=== PATIENT | male | born 1955 | race Caucasian/White ===

== ENCOUNTER 2024-11-03 20:21 | Inpatient (IN) | payer MEDICARE, MEDICAID, SELFPAY ==
[2024-11-03 20:26] VITALS: PULSE 57; RESP 20; O2SAT 95
[2024-11-03 20:29] VITALS: BMI 24.3
[2024-11-03 20:30] VITALS: BP 65/39; PULSE 63; RESP 17; TEMP 37; O2SAT 90
--- NOTE | 2024-11-03 20:35 | EKG_ITS ---
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
--- NOTE | 2024-11-03 20:50 | PD.EDALCOH ---
ED Alcohol RME/HPI General Chief Complaint: Alcohol Stated Complaint: ALTERED Time Seen by Provider: 11/03/24 20:47 Arrival date/time: 11/03/24 20:21 Mode of arrival: EMS RME / HPI RME / HPI narrative: DR. CORDERO MAIN ED EVALUATION: 68 y/o male with Hx of Alcohol Abuse JONI from [facility] presents wit stated complaint of alcohol intoxication. Patient was also found to be hypotensive upon arrival. Patient is not a reliable historian. History was obtained from EMS and nurses. Denies any pain. No other concerns or complaints expressed at this time. MD complaint: alcohol intoxication Last drink: Just Prior to Arrival Chronic alcohol use: Yes Previous visits for alcohol intoxication: Yes Related Data Home Medications ?Medication ?Instructions ?Recorded ?Confirmed aripiprazole 5 mg tablet (Abilify) 5 mg PO HS 01/09/23 01/09/23 aspirin 81 mg tablet,delayed 81 mg PO QDAY 01/09/23 01/09/23 release atorvastatin 80 mg tablet 80 mg PO HS 01/09/23 01/09/23 buspirone 7.5 mg tablet 7.5 mg PO QDAY 01/09/23 01/09/23 divalproex 500 mg tablet,extended 500 mg PO HS 01/09/23 01/09/23 release 24 hr ferrous sulfate 325 mg (65 mg 325 mg PO QDAY 01/09/23 01/09/23 iron) tablet lisinopril 10 mg tablet 10 mg QDAY 01/09/23 01/09/23 Allergies Allergy/AdvReac Type Severity Reaction Status Date / Time No Known Allergies Allergy Verified 11/03/24 20:23 Review of Systems Review of Systems ROS Unobtainable: unobtainable due to mental status Past Medical History Past Medical History NEUROLOGIC: Positive Neurological Disorders, Transient Ischemic Attacks (TIA) and Seizures CARDIAC: Positive Cardiac Disorders, Myocardial Infarction, Heart Murmur, Coronary Artery Disease, Peripheral Vascular Disease, Hypercholesterolemia, Edema and Hypertension RESPIRATORY: Positive Asthma GASTROINTESTINAL: Positive Gastrointestinal Disorders, Cirrhosis, Gastrointestinal Bleed, Esophageal Varices, Obstructive Bowel and Obesity GENITOURINARY: Positive Genitourinary Disorders MUSCULOSKELETAL: Positive Musculoskeletal Disorders, Arthritis and Carpal Tunnel Syndrome ENDOCRINE: Positive Diabetes Mellitus Type 2 HEMATOLOGIC: Positive Blood Disorders and Anemia PSYCHO/SOCIAL: Positive Psychiatric Problems, Bipolar Disorder, Depression, Anxiety, Attention Deficit Disorder, Attention Deficit Hyperactivity Disorder and Post Traumatic Stress Disorder OTHER HISTORY: Positive Hospitalization, Blood Transfusions and MRSA Family History FAMILY HISTORY: Positive Family Surgery Surgical History SURGICAL: Positive Cardiac Surgery, Coronary Stent, Cardiac Catheterization, Abdominal Surgery, Gastric Bypass Surgery, Bowel Surgery and Nephrectomy Social History SMOKING STATUS: Current some day smoker ALCOHOL: Current ALCOHOL FREQUENCY: 3 or More Drinks per Day ALCOHOL LAST INTAKE: Just Prior to Arrival ED Exam Narrative Physical exam: Generally the patient is somnolent arouses to loud verbal stimuli and follows commands heart is regular rate and rhythm lungs station equal bilaterally abdomen soft bowel sounds present all send nontender neurologic exam patient has no focal motor deficits his sensorium gradually improved throughout the ER stay. Skin is warm pale and dry genital exam is for a normal circumcised male. Course Course Course Narrative: CXR is ordered for determining the etiology of shortness of breath. Quality Measures none Orders Category Date Time Status Bedside Blood Glucose NOW Care 11/03/24 20:39 Active EKG (ED ONLY) *Do not use* NOW Care 11/03/24 20:35 Completed Matthews [Urinary Catheter] QS Care 11/03/24 20:[address] head/brain wo con Stat Exams 11/03/24 20:56 Completed EKG (ED Only) Stat Exams 11/03/24 20:35 Draft XR chest 1V portable Stat Exams 11/03/24 20:56 Completed Alcohol, Blood Medical Stat Lab 11/03/24 21:44 Completed Blood Culture (Lab) Stat Lab 11/03/24 21:49 Received CBC Stat Lab 11/03/24 21:44 Completed CMP [Comprehensive Metabolic Panel] Stat Lab 11/03/24 21:44 Completed Drug Screen,Urine Stat Lab 11/03/24 21:00 Completed Lactic Acid [Lactate (Lactic Acid)] Stat Lab 11/03/24 21:44 Results TSH [Thyroid Stimulating Hormone] Stat Lab 11/04/24 00:10 Ordered Troponin I Stat Lab 11/03/24 21:44 Completed UA [Urinalysis] Stat Lab 11/03/24 21:00 Completed Ringers Lactated 1000 ml [Lactated Ringers] 1,000 ml Med 11/03/24 21:14 Discontinued IV 999 mls/hr Ringers Lactated 1000 ml [Lactated Ringers] 1,000 ml Med 11/03/24 21:15 Discontinued IV 999 mls/hr Sodium Chloride 0.9% 1000 ml [Ns] 1,000 ml Med 11/03/24 22:34 Discontinued IV 999 mls/hr Sodium Chloride 0.9% 1000 ml [Ns] 1,000 ml Med 11/04/24 00:03 Active IV 999 mls/hr Sodium Chloride 0.9% 1000 ml [Ns] 2,000 ml Med 11/03/24 21:16 Discontinued IV 999 mls/hr Vital Signs Vital signs: Vital Signs Temperature 98.6 F 11/03/24 20:30 Pulse Rate 63 11/03/24 20:30 Respiratory Rate 17 11/03/24 20:30 Blood Pressure 65/39 L 11/03/24 20:30 Pulse Oximetry (%) 90 L 11/03/24 20:30 Oxygen Delivery Method Room Air 11/03/24 20:30 Critical Care Time Critical Care Time Critical Care Time: Yes Total Critical Care Time (min.): 35 Attestation: Excluding other billable procedures Discharge Plan Plan Patient Disposition: Admit Acute Care w/in Hospital Prescriptions/Referrals Prescriptions/Med Rec: No Action atorvastatin 80 mg tablet 80 mg PO HS Patient Comments: TAKE 1 TABLET BY MOUTH DAILY AT BEDTIME FOR 7 DOSES aspirin 81 mg tablet,delayed release (DR/EC) 81 mg PO QDAY Patient Comments: TAKE 1 TABLET (81 MG TOTAL) BY MOUTH 1 (ONE) TIME EACH DAY FOR 26 DOSES. ferrous sulfate 325 mg (65 mg iron) tablet 325 mg PO QDAY Patient Comments: TAKE 1 TABLET BY MOUTH EVERY DAY lisinopril 10 mg tablet 10 mg QDAY Patient Comments: TAKE 1 TABLET BY MOUTH 1 TIME EACH DAY. divalproex 500 mg tablet extended release 24 hr 500 mg PO HS Patient Comments: TAKE 1 TABLET BY MOUTH EVERYDAY AT BEDTIME buspirone 7.5 mg Tablet 7.5 mg PO QDAY aripiprazole [Abilify] 5 mg Tablet 5 mg PO HS Referrals: No Primary/Family,Physician [Primary Care Provider] - In 1 week Problem List Clinical Impression: Hypotension, Alcohol abuse, Dehydration Patient/Caregiver Discharge Instructions Print Language: Mohawk Stand Alone Forms: Pretty Award Info., Patient Portal Info Letter Alcohol MDM Narrative MDM Narrative: Scribe Attestation: Sylvia Jeffery am scribing for and in the presence of Dr. Cordero. Provider Notation: Although this document has been carefully reviewed, there may still be some phonetic and other typographical errors.? These errors are purely grammatical due to imperfections in the software program and should not be construed in any way to? compromise the substance of the patient's medical care during this visit. Patient arrived hypotensive with a systolic blood pressure in the 70s. Patient was hydrated with 3 L of IV normal saline with a blood pressure increase to 94/58. He will receive 1/4 L of IV fluid. He has no signs of infection. Lactic acid level was 2.1. Blood alcohol level is 204. Head CT is negative. He is now alert and oriented x 4. Albumin was low at 3.0. I spoke with the hospitalist and the patient will be admitted in the hospital for further treatment and evaluation with his volume depletion and alcohol abuse and hypotension improved. Patient data External records reviewed:: [facility] [place] previous records (Reviewed prior ED records from 01/30/23. Patient was seen for Alcohol abuse.) and EMS form Clinical information provided by:: EMS Social determinants that could affect healthcare access:: alcohol use Patient has the following chronic illnesses:: Alcohol abuse How is presenting disease/condition affected by chronic disease/condition?: exacerbated by Evaluation data The following diagnostics were reviewed and interpreted by me:: lab results, radiology exam(s) and EKG tracing(s) Lab and/or radiology exams considered but not ordered:: None Interpretation Summary: RADIOLOGY Head/Brain CT: Findings: No significant ventricular enlargement. Intra-axial or extra-axial hemorrhage density is not seen. No mass effect or midline shift Basal cisterns are not remarkable. Fourth ventricle is midline. Cranial vault intact. Impression: Negative for acute hemorrhage, mass effect or midline shift Chest X-Ray: FINDINGS: Normal heart size The lungs are clear. The osseous structures are intact IMPRESSION: No active disease Medications / Prescriptions Medications or Prescriptions considered but not ordered:: None Medication administrations:: Medication Administration History Sodium Chloride (Ns) 1,000 mls @ 999 mls/hr IV .Q1H1M ONE Stop: 11/04/24 01:03 Last Admin: 11/04/24 00:12 Dose: 999 mls/hr Documented By: RACHEL Discontinued Medications Lactated Ringer's (Lactated Ringers) 1,000 mls @ 999 mls/hr IV .Q1H1M ONE Stop: 11/03/24 22:14 Last Admin: 11/03/24 21:18 Dose: Not Given Documented By: RACHEL Non-Admin Reason: Cancelled by Provider Lactated Ringer's (Lactated Ringers) 1,000 mls @ 999 mls/hr IV .Q1H1M ONE Stop: 11/03/24 22:15 Last Admin: 11/03/24 21:18 Dose: Not Given Documented By: RACHEL Non-Admin Reason: Cancelled by Provider Sodium Chloride (Ns) 2,000 mls @ 999 mls/hr IV .Q2H1M ONE Stop: 11/03/24 23:16 Last Infusion: 11/03/24 23:25 Dose: Infused Documented By: Admin: 11/03/24 21:17 Dose: 999 mls/hr Documented By: RACHEL Sodium Chloride (Ns) 1,000 mls @ 999 mls/hr IV .Q1H1M ONE Stop: 11/03/24 23:34 Last Infusion: 11/04/24 00:04 Dose: Infused Documented By: Admin: 11/03/24 22:46 Dose: 999 mls/hr Documented By: RACHEL See above Consultations Consultation(s) initiated? (list below): Yes Consultation #1 (Physician, Specialty, Details): Hospitalist made aware of the patient?s HPI, PMHx, lab and/or radiology results. Treatment plan was discussed. Will admit for further evaluation and management. Accepts patient for admission. Time: 00:11 Diagnosis Differential diagnosis alcohol: alcohol withdrawal delirium, hypomagnesemia, alcohol intoxication, alcohol ketoacidosis, alcohol withdrawal syndrome and alcohol withdrawal seizure Most likely diagnosis given after review of the tests above:: None Admission Indicated Admission indicated?: indicated Admission Request Was there a request for admission?: Yes Admission Attestation Admission request attestation: Discussed case with [] from Hospitalist service regarding admission. Discussed patients ED course, exam findings, labs, and radiology results. The Hospitalist [agrees,declines] to accept the patient for admission. Disposition Plan Disposition Plan: Admit
--- NOTE | 2024-11-03 20:56 | XR_ITS ---
Examination: AP chest single view Technique one AP portable semiupright chest single view Date and time: November 03, 2024 2138 hours Comparison January 09, 2023 INDICATIONS: Chest pain today FINDINGS: Normal heart size The lungs are clear. The osseous structures are intact IMPRESSION: No active disease
--- NOTE | 2024-11-03 20:56 | XR_ITS ---
Examination: CT brain head without contrast. 2-D sagittal coronal reconstructions Date and time of exam:November 03, 2024, 2126 hours, comparison January 16, 2023 INDICATIONS: Altered mental status today CTDI: vol (mGy):55.3 DLP: (mGycm):1137 Technique: Multiple CT axial sections of the brain have been obtained, 5 mm slice thickness. Contrast has not been administered. 2-D sagittal, coronal reconstructions have been obtained Low dose protocols were performed. One or more of the following dose reduction techniques were used; automated exposure control, adjustment of the mA and/or KV according to patient size, use of iterative reconstruction technique. Findings: No significant ventricular enlargement. Intra-axial or extra-axial hemorrhage density is not seen. No mass effect or midline shift Basal cisterns are not remarkable. Fourth ventricle is midline. Cranial vault intact. Impression: Negative for acute hemorrhage, mass effect or midline shift
[2024-11-03] MEDS: SODIUM CHLORIDE 0.9% 1000 ML 2,000 ML 999 ML IV (21:17)
[2024-11-03 21:18] LABS: Collection Type, Urine Catheter
[2024-11-03 21:23] LABS: Bilirubin,Urine Negative (Negative); Blood,Urine Negative (Negative); Clarity,Urine Clear (Clear/Hazy); Color,Urine Lt-Yellow (Lt Yel-Yel); Glucose, Urine Negative (Negative); Ketones,Urine Negative (Negative); Leukocyte Esterase,Urine Negative (Negative); Nitrite,Urine Negative (Negative); PH,Urine 6.5 (5.0-7.0); Protein,Urine Trace (Neg - Trace); RBC,Urine 1 /hpf (0-3); Specific Gravity,Urine 1.021 (1.001-1.035); Squamous Epithelial Cell,Urine 2 /hpf (0-5); Urobilinogen,Urine Negative mg/dL (0.0-1.0); WBC,Urine 2 /hpf (0-5)
[2024-11-03 21:31] LABS: Amphetamine/Methamp Scrn,U Negative (Negative); Barbiturate Screen,Urine Negative (Negative); Benzodiazepines Screen,Urine Negative (Negative); Benzoylecgonine Screen, Ur Negative (Negative); Fentanyl Screen,Urine Negative (Negative); Opiate Screen,Urine Negative (Negative); THC Screen,Urine Negative (Negative)
[2024-11-03 21:53] VITALS: BP 74/53; PULSE 60; RESP 13; TEMP 36.8; O2SAT 99
[2024-11-03 21:53] LABS: Lactate (Lactic Acid) 2.1 mMol/L (0.4-2.0)
[2024-11-03 21:56] LABS: Basophils # (Auto) 0.1 Thou/mm3 (0.0-0.2); Basophils % (Auto) 1 % (0-2.5); Eosinophils # (Auto) 0.7 Thou/mm3 (0.0-0.5); Eosinophils % (Auto) 9 % (0-10); Hematocrit 32.7 % (41.0-53.0); Hemoglobin 10.9 g/dL (13.5-16.0); Immature Granulocytes Auto 0.01 Thou/mm3 (0.00-0.00); Lymphocytes # (Auto) 1.5 Thou/mm3 (1.0-4.8); Lymphocytes % (Auto) 20 % (10-50); Mean Corpuscular HGB Conc 33.3 g/dl (31.0-37.0); Mean Corpuscular Hemoglobin 32.9 pg (25.0-35.0); Mean Corpuscular Volume 99 fL (80-100); Monocytes # (Auto) 0.5 Thou/mm3 (0.0-0.8); Monocytes % (Auto) 7 % (0-12); Neutrophils # (Auto) 4.6 Thou/mm3 (1.8-7.7); Neutrophils % (Auto) 63 % (37-80); Nucleated Red Blood Cell # 0.00 Thou/mm3 (0.00-0.00); Nucleated Red Blood Cell % 0 /100 WBC (0); Platelet Count 148 Thou/mm3 (140-440); RDW Standard Deviation 46.9 fL (35.1-43.9); Red Blood Count 3.31 Miln/mm3 (4.50-5.90); White Blood Count 7.3 Thou/mm3 (3.8-10.6)
[2024-11-03 22:13] LABS: Alanine Aminotransferase 13 U/L (10-49); Albumin, Serum 3.0 gm/dL (3.4-4.8); Albumin/Globulin Ratio 1.7 (1.2-2.2); Alcohol, Blood Medical 204.2 mg/dL (0-10.0); Alkaline Phosphatase 105 U/L (46-116); Anion Gap 10 (7-16); Aspartate Amino Transferase 16 U/L (0-34); BUN/Creatinine Ratio 15 Ratio (12-20); Bilirubin,Total 0.3 mg/dL (0.3-1.2); Blood Urea Nitrogen 21 mg/dL (9-23); Calcium 7.3 mg/dL (8.3-10.6); Calcium (Corrected) 8.1 mg/dL (8.5-10.1); Carbon Dioxide 19.7 mMol/L (20.0-31.0); Chloride 111 mMol/L (98-107); Creatinine (Component) 1.4 mg/dL (0.6-1.3); Estimated Creatinine Clearance 63.7 mL/min (>60); Globulin 1.8 gm/dL (2.3-3.5); Glucose 233 mg/dL (74-106); Osmolality,Calculated 291 (275-295); Potassium 4.0 mMol/L (3.4-5.1); Sodium 141 mMol/L (136-145); Total Protein 4.8 gm/dL (5.7-8.2); Troponin I < 0.020 ng/mL (0.0-0.045); eGFR 55 See Note
[2024-11-03] MEDS: SODIUM CHLORIDE 0.9% 1000 ML 1,000 ML 999 ML IV (22:46)
[2024-11-03 22:47] VITALS: BP 81/58; PULSE 54; RESP 15; TEMP 36.7; O2SAT 95
[2024-11-03 23:44] VITALS: BP 78/55; PULSE 55; RESP 18; O2SAT 94
[2024-11-04] VITALS (10 sets, daily range): BP systolic 92–168; BP diastolic 64–103; PULSE 55–108; RESP 13–19; TEMP 36.1–37.4; O2SAT 94–96
[2024-11-04] MEDS: SODIUM CHLORIDE 0.9% 1000 ML 1,000 ML 999 ML IV (00:12)
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
[2024-11-04 00:51] LABS: Reflex Lactate? Y
[2024-11-04 01:00] LABS: Creatine Kinase 49 U/L (34-171); Thyroid Stimulating Hormone 2.24 uIU/mL (0.55-4.78)
[2024-11-04 01:06] LABS: Lactic Acid, 3 HR 1.4 mMol/L (0.4-2.0)
[2024-11-04] MEDS: DIVALPROEX SOD EC 125 MG TABEC 500 MG PO ×2 (01:43→20:11)
[2024-11-04 03:03] LABS: Ammonia 27 uMol/L (11-32)
[2024-11-04 04:58] LABS: Basophils # (Auto) 0.1 Thou/mm3 (0.0-0.2); Basophils % (Auto) 1 % (0-2.5); Eosinophils # (Auto) 0.5 Thou/mm3 (0.0-0.5); Eosinophils % (Auto) 8 % (0-10); Hematocrit 34.5 % (41.0-53.0); Hemoglobin 11.8 g/dL (13.5-16.0); Immature Granulocytes Auto 0.01 Thou/mm3 (0.00-0.00); Immature Reticulocyte Fraction 9.4 % (2.3-13.4); Lymphocytes # (Auto) 1.9 Thou/mm3 (1.0-4.8); Lymphocytes % (Auto) 27 % (10-50); Mean Corpuscular HGB Conc 34.2 g/dl (31.0-37.0); Mean Corpuscular Hemoglobin 33.8 pg (25.0-35.0); Mean Corpuscular Volume 99 fL (80-100); Monocytes # (Auto) 0.7 Thou/mm3 (0.0-0.8); Monocytes % (Auto) 10 % (0-12); Neutrophils # (Auto) 3.8 Thou/mm3 (1.8-7.7); Neutrophils % (Auto) 55 % (37-80); Nucleated Red Blood Cell # 0.00 Thou/mm3 (0.00-0.00); Nucleated Red Blood Cell % 0 /100 WBC (0); Platelet Count 120 Thou/mm3 (140-440); RDW Standard Deviation 48.5 fL (35.1-43.9); Red Blood Count 3.49 Miln/mm3 (4.50-5.90); Reticulocyte % (Auto) 1.7 % (0.5-1.5); Reticulocyte Absolute Auto 59.7 Biln/L (25.0-75.0); Reticulocyte Hgb Content 37.2 pg (28.0-35.0); White Blood Count 7.0 Thou/mm3 (3.8-10.6)
[2024-11-04 05:22] LABS: Glucose Estimated Average 103 mg/dL (80-131); Hemoglobin A1C 5.2 % Hgb (4.8-6.0)
[2024-11-04 05:25] LABS: Alanine Aminotransferase 14 U/L (10-49); Albumin, Serum 3.1 gm/dL (3.4-4.8); Albumin/Globulin Ratio 1.6 (1.2-2.2); Alkaline Phosphatase 110 U/L (46-116); Anion Gap 11 (7-16); Aspartate Amino Transferase 17 U/L (0-34); BUN/Creatinine Ratio 22 Ratio (12-20); Bilirubin,Total 0.3 mg/dL (0.3-1.2); Blood Urea Nitrogen 22 mg/dL (9-23); Calcium 7.7 mg/dL (8.3-10.6); Calcium (Corrected) 8.4 mg/dL (8.5-10.1); Carbon Dioxide 19.5 mMol/L (20.0-31.0); Cardiac Risk Estimate 2.2 RATIO (4.0-6.7); Chloride 114 mMol/L (98-107); Cholesterol 116 mg/dL (132-200); Creatinine (Component) 1.0 mg/dL (0.6-1.3); Estimated Creatinine Clearance 89.2 mL/min (>60); Ferritin 160 ng/mL (10.5-307.3); Globulin 1.9 gm/dL (2.3-3.5); Glucose 114 mg/dL (74-106); HDL Cholesterol 52 mg/dL (40-60); Iron 40 mcg/dL (65-175); LDL Cholesterol,Calculated 51 mg/dL (0-130); Magnesium 1.3 mg/dL (1.6-2.6); Osmolality,Calculated 291 (275-295); Percent Iron Saturation 15 % (20-55); Phosphorous 3.5 mg/dL (2.4-5.1); Potassium 4.2 mMol/L (3.4-5.1); Sodium 144 mMol/L (136-145); Total Iron Binding Capacity 254 mcg/dL (250-425); Total Protein 5.0 gm/dL (5.7-8.2); Triglycerides 66 mg/dL (30-150); Unsaturated Iron Binding 214 (225-295); eGFR > 60 See Note
[2024-11-04] MEDS: THIAMINE 100 MG TABLET PO (08:48)
[2024-11-04] MEDS: FOLIC ACID 1 MG TABLET PO (08:48)
[2024-11-04] MEDS: Magnesium Sulfate 4 GM Ivpb 4 GM/50 ML BAG IV (08:49)
[2024-11-04] MEDS: HEPARIN SOD INJ 5000 UNIT/ML VIAL SC ×2 (08:49→20:11)
[2024-11-04] MEDS: FINASTERIDE 5 MG TABLET PO (10:07)
--- NOTE | 2024-11-04 11:45 | ESPR_ITS ---
<Statement entered by Agnes Corona MD - 11/04/24 13:38> I have reviewed the note and agree with the resident's assessment & plan with exceptions as below. I have personally reviewed labs, imaging, home meds/prior records, examined the patient, formulated and discussed management plan with the IM team. Pt examined at bedside today. Pt reports that he does not know how he got to the hospital. He is AAOx3, however believes that he was drinking at his girlfriend's house (which is what is documented different in [facility] where it says he was at a casino). He reports that he used to be sober for 4 years, however, he relapsed recently due to the presence of new stressors in his life. He does report being admitted into the hospital in the past for alcohol withdrawal, and took Ativan for it, however, he denies ever being in an AA program as well. Will order follow up UDS, pt's ASHLEY has resolved (1.4 -> 1.0). Pt's ASHLEY etiology likely related to Pre-renal, however due to resolvement, will hold on further workup of ASHLEY. Will continue with CIWA protocol, last CIWA 9. Pt will also get social work specialist referral in the meantime. Continue with CIWA protocol, repeat hematology and chemistry in AM. #Alcohol Withdrawal 2/2 #Alcohol use disorder #ASHLEY, resolved Agnes Corona, PGY-2 Internal Medicine Documentation for date of: 11/04/24 Subjective Subjective Interval history: Patient seen at bedside. No acute overnight events. While in the room patient mentions that he had more than 2 drinks last night of hard liquor. For the past 7 days he has been having 10 drinks per day of hard liquor. Before that he was having half a pint per day for several months. Patient has been complaining of stomach acidity and ongoing dizziness. Denies chest pain, shortness of breath, nausea, vomiting, constipation, diarrhea. Exam Vital Signs Temp Pulse Resp BP Pulse Ox O2 Del Method O2 Flow Rate 98.1 F 88 19 147/103 H 94 L Nasal Cannula 2 11/04/24 10:11/04/24 10:00 11/04/24 10:00 11/04/24 10:00 11/04/24 10:00 11/04/24 08:17 11/04/24 08:17 Narrative Exam GENERAL: Awake, answering questions appropriately but unsure of events that transpired last night, appears stated age HEENT: NC/AT. Moist mucosa. PERRLA/EOMI. CARDIO: Heart RRR, Aortic stenosis with radition to carotid, no JVD. PULM: No coughing or visible SOB. Lungs CTA B/L. GI: Abdomen soft, NT/ND, +BS. SKIN/MSK/EXT: No wounds/discoloration/rashes/edema/amputations. +Pedal pulses present B/L. NEURO: Oriented x3, cranial nerves II to XII intact, editor magazine strength 5 out of 5, Moves extremities x4, No focal neurologic deficits noted. Objective Labs 11/05/24 04:07 11/05/24 04:07 Labs: Laboratory Results - last 24 hr 11/03/24 11/03/24 11/04/24 21:00 21:44 01:01 WBC 7.3 RBC 3.31 L Hgb 10.9 L Hct 32.7 L MCV 99 MCH 32.9 MCHC 33.3 RDW Std Deviation 46.9 H Plt Count 148 Neut % (Auto) 63 Lymph % (Auto) 20 [place] % (Auto) 7 Eos % (Auto) 9 Baso % (Auto) 1 Neut # (Auto) 4.6 Lymph # (Auto) 1.5 [place] # (Auto) 0.5 Eos # (Auto) 0.7 H Baso # (Auto) 0.1 Immature Gran # (Auto) 0.01 H Absolute Nucleated RBC 0.00 Immature Gran % 0 Nucleated RBC % 0 Retic Count (auto) Absolute Retic Immature Retic Fraction Retic Hgb Content CHr Sodium 141 Potassium 4.0 Chloride 111 H Carbon Dioxide 19.7 L Anion Gap 10 BUN 21 Creatinine 1.4 H Estim Creat Clear Calc 63.7 eGFR 55 L BUN/Creatinine Ratio [address]ucose [address] Glu mg/dL Hemoglobin A1c Calculated Osmolality 291 Lactic Acid 2.1 H 1.4 Calcium 7.3 L Corrected Calcium 8.1 L Phosphorus Magnesium Iron TIBC Iron Saturation Unsat Iron Binding Ferritin Total Bilirubin 0.3 AST 16 ALT 13 Alkaline Phosphatase 105 Ammonia Total Creatine Kinase 49 Troponin I < 0.020 Total Protein 4.8 L Albumin 3.0 L Globulin 1.8 L Albumin/Globulin Ratio 1.7 Triglycerides Cholesterol LDL Cholesterol, Calc HDL Cholesterol Cholesterol/HDL Ratio TSH 2.24 Ur Collection Type Catheter Urine Color Lt-Yellow Urine Clarity Clear Urine pH 6.5 Ur Specific [place] 1.021 Urine Protein Trace Urine Glucose (UA) Negative Urine Ketones Negative Urine Blood Negative Urine Nitrite Negative Urine Bilirubin Negative Urine Urobilinogen (Auto) Negative Ur Leukocyte Esterase Negative Urine RBC 1 Urine WBC 2 Ur Squamous Epith Cells 2 Urine Bacteria None Urine Opiates Screen Negative Urine Fentanyl Screen Negative Ur Barbiturates Screen Negative U Amphetamin/Meth Scrn Negative U Benzodiazepines Scrn Negative U Cocaine Metab Screen Negative U Marijuana (THC) Screen Negative Ethyl Alcohol 204.2 H 11/04/24 11/04/24 02:41 04:45 WBC 7.0 RBC 3.49 L Hgb 11.8 L Hct 34.5 L MCV 99 MCH 33.8 MCHC 34.2 RDW Std Deviation 48.5 H Plt Count 120 L Neut % (Auto) 55 Lymph % (Auto) 27 [place] % (Auto) 10 Eos % (Auto) 8 Baso % (Auto) 1 Neut # (Auto) 3.8 Lymph # (Auto) 1.9 [place] # (Auto) 0.7 Eos # (Auto) 0.5 Baso # (Auto) 0.1 Immature Gran # (Auto) 0.01 H Absolute Nucleated RBC 0.00 Immature Gran % 0 Nucleated RBC % 0 Retic Count (auto) 1.7 H Absolute Retic 59.7 Immature Retic Fraction 9.4 Retic Hgb Content CHr 37.2 H Sodium 144 Potassium 4.2 Chloride 114 H Carbon Dioxide 19.5 L Anion Gap 11 BUN 22 Creatinine 1.0 Estim Creat Clear Calc 89.2 eGFR > 60 BUN/Creatinine Ratio 22 H Glucose [address] Glu mg/dL 103 Hemoglobin A1c 5.2 Calculated Osmolality 291 Lactic Acid Calcium 7.7 L Corrected Calcium 8.4 L Phosphorus 3.5 Magnesium 1.3 L Iron 40 L TIBC 254 Iron Saturation 15 L Unsat Iron Binding 214 L Ferritin 160 Total Bilirubin 0.3 AST 17 ALT 14 Alkaline Phosphatase 110 Ammonia 27 Total Creatine Kinase Troponin I Total Protein 5.0 L Albumin 3.1 L Globulin 1.9 L Albumin/Globulin Ratio 1.6 Triglycerides 66 Cholesterol 116 L LDL Cholesterol, Calc 51 HDL Cholesterol 52 Cholesterol/HDL Ratio 2.2 L TSH Ur Collection Type Urine Color Urine Clarity Urine pH Ur Specific [place] Urine Protein Urine Glucose (UA) Urine Ketones Urine Blood Urine Nitrite Urine Bilirubin Urine Urobilinogen (Auto) Ur Leukocyte Esterase Urine RBC Urine WBC Ur Squamous Epith Cells Urine Bacteria Urine Opiates Screen Urine Fentanyl Screen Ur Barbiturates Screen U Amphetamin/Meth Scrn U Benzodiazepines Scrn U Cocaine Metab Screen U Marijuana (THC) Screen Ethyl Alcohol Quality Measures Quality Measures none Advance care planning discussed with:: patient Assessment & Plan Assessment Current Active Medications: Generic Name Dose Route Start Last Admin Trade Name Freq PRN Reason Stop Dose Admin Acetaminophen 650 mg 11/04/24 00:42 Acetaminophen 325 Mg Tablet PO 12/04/24 00:41 Q6H PRN PAIN SCALE 1-3 (mild Aripiprazole 5 mg 11/04/24 21:00 Aripiprazole 5 Mg Tablet PO 12/04/24 20:59 HS ALYSIA Chlordiazepoxide HCl 25 mg 11/06/24 00:44 Chlordiazepoxide Hcl 25 Mg Capsule PO 11/07/24 00:43 Q6HR PRN CIWA >9 Dextrose 25 ml 11/04/24 00:42 Dextrose 50%-Water Inj 50 Ml Syringe IV 12/04/24 00:41 Q15MIN PRN BG 50-70 responsive npo pt Dextrose 50 ml 11/04/24 00:42 Dextrose 50%-Water Inj 50 Ml Syringe IV 12/04/24 00:41 Q15MIN PRN BG <50 OR BG <70 & pt unresponsive Divalproex Sodium 500 mg 11/04/24 21:00 Divalproex Sod Ec 125 Mg Tabec PO 12/04/24 20:59 HS ALYSIA Finasteride 5 mg 11/04/24 09:00 11/04/24 10:07 Finasteride 5 Mg Tablet PO 12/04/24 08:59 5 mg QDAY ALYSIA Administration Folic Acid 1 mg 11/04/24 09:00 11/04/24 08:48 Folic Acid 1 Mg Tablet PO 12/04/24 08:59 1 mg QDAY ALYSIA Administration Glucagon 1 mg 11/04/24 00:42 Glucagon Inj 1 Mg Vial IM Q15MIN PRN BG <70, and no IV access Heparin Sodium (Porcine) 5,000 unit 11/04/24 09:00 11/04/24 08:49 Heparin Sod Inj 5000 Unit/Ml Vial SC 11/18/24 08:59 5,000 unit Q12HR ALYSIA Administration Magnesium Sulfate 4 gm in 50 mls @ 12.5 mls/hr 11/04/24 07:47 11/04/24 08:49 Magnesium Sulfate Ivpb IV 11/04/24 11:46 12.5 mls/hr X1 ONE Administration Insulin Human Lispro 0 unit 11/04/24 07:30 11/04/24 07:58 Insulin Lispro (Admelog) 1 Unit/0.01 Ml Unit SC 12/04/24 07:29 Not Given ACHS ALYSIA Protocol Lorazepam 0.5 mg 11/04/24 00:42 11/04/24 06:29 Lorazepam 0.5 Mg Tablet PO 11/09/24 00:41 0.5 mg Q4HR PRN Administration CIWA Score 2-6 Lorazepam 1 mg 11/04/24 00:42 11/04/24 10:50 Lorazepam 0.5 Mg Tablet PO 11/09/24 00:41 1 mg Q4HR PRN Administration CIWA SCORE 7-11 Lorazepam 2 mg 11/04/24 00:42 Lorazepam 0.5 Mg Tablet PO 11/09/24 00:41 Q4HR PRN CIWA SCORE 12-15 Ondansetron HCl 4 mg 11/04/24 00:42 Ondansetron Inj 2 Mg/Ml Inj 2 Ml IVP 12/04/24 00:41 Q6H PRN NAUSEA OR VOMITING Protocol Sennosides 1 tab 11/04/24 00:42 Senna Tablet PO 12/04/24 00:41 QDAY PRN constipation Protocol Thiamine HCl 100 mg 11/04/24 09:00 11/04/24 08:48 Thiamine 100 Mg Tablet PO 12/04/24 08:59 100 mg QDAY ALYSIA Administration Plan 68-year-old male with past medical history of hypertension, BPH, alcohol use disorder and bipolar disorder. Patient was admitted for acute alcohol intoxication requiring close monitoring for alcohol withdrawal along with ASHLEY and hypotension. #Acute encephalopathy #Acute alcohol intoxication #Alcohol use disorder Differentials include: Alcohol intoxication, underlying psychiatric disorder less likely to be stroke/TIA, seizures or infectious etiology U tox is negative other than elevated blood alcohol Ammonia level normal Blood cultures pending Plan: - CIWA protocol, Librium 25 every 6 if CIWA greater than 9 - Continue thiamine 100 mg daily and folate 1 mg daily - Counseled on complete alcohol cessation, consider - Social service consultation placed #ASHLEY, resolved #Hypotension, hypovolemia (resolved) #Hyperglycemia (resolved) A1c 5.2 #Hx of Hypertension Patient on home lisinopril 10 mg p.o. daily Plan: Restarted lisinopril 10 mg daily #Hx of BPH Patient on finasteride 5 mg p.o. daily ED provider ordered Matthews Plan: DC Matthews and do bladder training Restarted home medication #Hx of Bipolar disorder #Hx of Depression Patient is on Abilify 5 mg p.o. at bedtime along with valproic 500 mg p.o. at bedtime Plan: Restarted home medications Health Maintenance: Diet: Cardiac GI prophylaxis: protonix 40 daily DVT prophylaxis: Heparin subcu Dispo: CIWA protocol, IV fluid resuscitation Code: DNR Case discussed with my attending Dr. Sanz, and senior resident, Dr. Francesca Ruiz MD PGY-1 Attending Provider Attestation/Addendum 68-year-old male patient with alcohol use disorder admitted for alcohol withdrawal. The patient is tremulous. The patient denies history of seizure. He has no known ulcer. No history of GI bleed. Will need physical therapy evaluation to assess gait and balance. Patient needs referral to substance use counselor. Discussed with housestaff.
[2024-11-04] MEDS: ACETAMINOPHEN 325 MG TABLET 650 MG PO ×2 (11:51→22:29)
[2024-11-04] MEDS: PANTOPRAZOLE 40 MG TABLET PO (15:44)
[2024-11-04] MEDS: ONDANSETRON INJ 2 MG/ML INJ 2 ML 4 MG IVP (22:29)
--- NOTE | 2024-11-04 22:30 | PC.NURSE ---
Pt transferred from Tele via bed, alert and oriented, anxious, c/o headache and nausea, no respiratory distress observed while on room air and pt denies shortness of breath. Bed alarm turned on for safety. Pt refused seizure pads as pt stated I've never had seizures . IV left antecubital saline locked. Agree with previous scheduling analyst, assuming care of pt at this time. Will continue to monitor.
[2024-11-05] VITALS (48 sets, daily range): BP systolic 90–191; BP diastolic 61–105; PULSE 51–138; RESP 7–25; TEMP 36.4–36.7; O2SAT 90–98; BMI 24.8
[2024-11-05 05:33] LABS: Basophils # (Auto) 0.0 Thou/mm3 (0.0-0.2); Basophils % (Auto) 1 % (0-2.5); Eosinophils # (Auto) 0.5 Thou/mm3 (0.0-0.5); Eosinophils % (Auto) 7 % (0-10); Hematocrit 34.7 % (41.0-53.0); Hemoglobin 11.7 g/dL (13.5-16.0); Immature Granulocytes Auto 0.01 Thou/mm3 (0.00-0.00); Lymphocytes # (Auto) 1.6 Thou/mm3 (1.0-4.8); Lymphocytes % (Auto) 24 % (10-50); Mean Corpuscular HGB Conc 33.7 g/dl (31.0-37.0); Mean Corpuscular Hemoglobin 32.8 pg (25.0-35.0); Mean Corpuscular Volume 97 fL (80-100); Monocytes # (Auto) 0.5 Thou/mm3 (0.0-0.8); Monocytes % (Auto) 8 % (0-12); Neutrophils # (Auto) 3.9 Thou/mm3 (1.8-7.7); Neutrophils % (Auto) 60 % (37-80); Nucleated Red Blood Cell # 0.00 Thou/mm3 (0.00-0.00); Nucleated Red Blood Cell % 0 /100 WBC (0); Platelet Count 128 Thou/mm3 (140-440); RDW Standard Deviation 46.0 fL (35.1-43.9); Red Blood Count 3.57 Miln/mm3 (4.50-5.90); White Blood Count 6.5 Thou/mm3 (3.8-10.6)
[2024-11-05 05:56] LABS: Alanine Aminotransferase 16 U/L (10-49); Albumin, Serum 3.3 gm/dL (3.4-4.8); Albumin/Globulin Ratio 1.7 (1.2-2.2); Alkaline Phosphatase 114 U/L (46-116); Anion Gap 11 (7-16); Aspartate Amino Transferase 22 U/L (0-34); BUN/Creatinine Ratio 19 Ratio (12-20); Bilirubin,Total 0.5 mg/dL (0.3-1.2); Blood Urea Nitrogen 15 mg/dL (9-23); Calcium 8.0 mg/dL (8.3-10.6); Calcium (Corrected) 8.6 mg/dL (8.5-10.1); Carbon Dioxide 22.0 mMol/L (20.0-31.0); Chloride 108 mMol/L (98-107); Creatinine (Component) 0.8 mg/dL (0.6-1.3); Estimated Creatinine Clearance 111.5 mL/min (>60); Globulin 2.0 gm/dL (2.3-3.5); Glucose 125 mg/dL (74-106); Magnesium 1.6 mg/dL (1.6-2.6); Osmolality,Calculated 283 (275-295); Phosphorous 1.8 mg/dL (2.4-5.1); Potassium 3.4 mMol/L (3.4-5.1); Sodium 141 mMol/L (136-145); Total Protein 5.3 gm/dL (5.7-8.2); eGFR > 60 See Note
[2024-11-05] MEDS: PANTOPRAZOLE 40 MG TABLET PO (08:10)
[2024-11-05] MEDS: Magnesium Sulfate 4 GM Ivpb 4 GM/50 ML BAG IV (08:10)
[2024-11-05] MEDS: FINASTERIDE 5 MG TABLET PO (08:10)
[2024-11-05] MEDS: HEPARIN SOD INJ 5000 UNIT/ML VIAL SC ×2 (08:11→20:44)
[2024-11-05] MEDS: FOLIC ACID 1 MG TABLET PO (08:11)
[2024-11-05] MEDS: THIAMINE 100 MG TABLET PO (08:11)
[2024-11-05] MEDS: NAPH,KPH MBDB 1 PACKET (1.5 GM) 2 PACKET PO (08:11)
[2024-11-05] MEDS: INSULIN LISPRO (AdmeLOG) 1 UNIT/0.01 ML UNIT SC (08:19)
--- NOTE | 2024-11-05 10:46 | PC.SS ---
SS met with patient this morning who is alert/oriented. Patient was able to verify demographics. Patient was visibly shaking from alcohol withdrawls. Patient states he was here visiting and resides in [place] with his son, Roque Orozco. Patient is independent with ADL's. patient has a history of alcohol abuse. He states his last drink was the day before he was admitted to hospital. He has been in an out patient rehab prior but that was years ago. He recently started drinking again due to some stressors with his insurance and owed money to psychiatry. He was not able to see psychiatry until his outstanding bill was paid. Patient states this has been taken care of. Patient has a history of bipolar and depression. Psychiatrist is Dr. Qiu in [place]. Patient sees psychiatry once a month. PCP: Dr. Patti Curran. Patient has a careprovider that comes out to his home to assist with correction care 3 x weekly. Patient states his friend, Leidy, is the alt medical decision maker. Alt medical decision maker: Leidy, friend, [phone] transportation: family /friends
--- NOTE | 2024-11-05 10:48 | PD.RESEVENT ---
Documentation for date of: 11/05/24 Event Note Event Note: Rapid Response Time: 10:40 AM Reason for Call: CIWA 31 Assessment: Patient was assessed and airway and breathing were found to be intact. Patient was alert and oriented x 2. Ongoing tremors of the hands. It was found out that the patient has not been getting his CIWA medications despite moderate CIWA scores. New orders: Discontinued Ativan, put in diazepam order. Patient was discussed with the attending, Dr. Sanz, and senior resident, Dr. Ma. Markos Ruiz MD PGY-1
[2024-11-05] MEDS: DIAZEPAM INJ 5 MG/ML VIAL 2 ML IM (11:17)
--- NOTE | 2024-11-05 11:26 | ESPR_ITS ---
<Statement entered by Lara Ma MD - 11/05/24 22:04> 68-year-old male with hypertension, BPH, alcohol use disorder, and bipolar disorder was admitted for acute alcohol intoxication complicated by acute encephalopathy, ASHLEY, hypotension, and risk of alcohol withdrawal. He experienced a rapid response due to elevated CIWA score of 31, which improved to 11 by mid- afternoon, but withdrawal symptoms remain inadequately controlled. The patient is on CIWA protocol with scheduled Librium 25 mg q6h for scores >9, along with daily thiamine and folate supplementation. ASHLEY, hypotension, and hyperglycemia have resolved. He was counseled on alcohol cessation and sr. social media & mobile manager were involved for support, with ICU upgrade considered if withdrawal worsens. I?ve reviewed the note and agree with the resident's assessment and plan, with the exceptions outlined above. I personally went over the labs, imaging, home medications, and prior records, and examined the patient. The case was also reviewed with the attending physician. Please note: this document was transcribed using voice recognition technology; minor inaccuracies may be present. Lara Ma DO PGY II Documentation for date of: 11/05/24 Subjective Subjective Interval history: Patient seen at bedside today. Rapid response called at 10:40AM (see event note). Exam Vital Signs Temp Pulse Resp BP Pulse Ox O2 Del Method O2 Flow Rate 97.6 F 68 17 141/88 H 95 Room Air 1 11/05/24 07:05 11/05/24 08:13 11/05/24 07:05 11/05/24 08:13 11/05/24 07:05 11/05/24 07:05 11/05/24 04:00 Narrative Exam GENERAL: Awake, answering questions appropriately, mildly confused, bilat tremors still present particularly of left hand HEENT: NC/AT. Moist mucosa. PERRLA/EOMI. CARDIO: Heart RRR, Aortic stenosis with radition to carotid, no JVD. PULM: No coughing or visible SOB. Lungs CTA B/L. GI: Abdomen soft, NT/ND, +BS. SKIN/MSK/EXT: No wounds/discoloration/rashes/edema/amputations. +Pedal pulses present B/L. NEURO: Oriented x2, cranial nerves II to XII intact, entry level project coordinator strength 5 out of 5, Moves extremities x4, No focal neurologic deficits noted. Objective Labs 11/06/24 08:10 11/05/24 04:07 Labs: Laboratory Results - last 24 hr 11/05/24 04:07 WBC 6.5 RBC 3.57 L Hgb 11.7 L Hct 34.7 L MCV 97 MCH 32.8 MCHC 33.7 RDW Std Deviation 46.0 H Plt Count 128 L Neut % (Auto) 60 Lymph % (Auto) 24 [place] % (Auto) 8 Eos % (Auto) 7 Baso % (Auto) 1 Neut # (Auto) 3.9 Lymph # (Auto) 1.6 [place] # (Auto) 0.5 Eos # (Auto) 0.5 Baso # (Auto) 0.0 Immature Gran # (Auto) 0.01 H Absolute Nucleated RBC 0.00 Immature Gran % 0 Nucleated RBC % 0 Sodium 141 Potassium 3.4 D Chloride 108 H Carbon Dioxide 22.0 Anion Gap 11 BUN 15 Creatinine 0.8 Estim Creat Clear Calc 111.5 eGFR > 60 BUN/Creatinine Ratio 19 Glucose 125 H Calculated Osmolality 283 Calcium 8.0 L Corrected Calcium 8.6 Phosphorus 1.8 L Magnesium 1.6 Total Bilirubin 0.5 AST 22 ALT 16 Alkaline Phosphatase 114 Total Protein 5.3 L Albumin 3.3 L Globulin 2.0 L Albumin/Globulin Ratio 1.7 Quality Measures Quality Measures none Advance care planning discussed with:: patient Assessment & Plan Assessment Current Active Medications: Generic Name Dose Route Start Last Admin Trade Name Freq PRN Reason Stop Dose Admin Acetaminophen 650 mg 11/04/24 00:42 11/04/24 22:29 Acetaminophen 325 Mg Tablet PO 12/04/24 00:41 650 mg Q6H PRN Administration PAIN SCALE 1-3 (mild Aripiprazole 5 mg 11/04/24 21:00 11/04/24 20:11 Aripiprazole 5 Mg Tablet PO 12/04/24 20:59 5 mg HS ALYSIA Administration Chlordiazepoxide HCl 25 mg 11/05/24 12:00 11/05/24 11:18 Chlordiazepoxide Hcl 25 Mg Capsule PO 11/10/24 11:59 25 mg Q6HR ALYSIA Administration Dextrose 25 ml 11/04/24 00:42 Dextrose 50%-Water Inj 50 Ml Syringe IV 12/04/24 00:41 Q15MIN PRN BG 50-70 responsive npo pt Dextrose 50 ml 11/04/24 00:42 Dextrose 50%-Water Inj 50 Ml Syringe IV 12/04/24 00:41 Q15MIN PRN BG <50 OR BG <70 & pt unresponsive Diazepam 5 mg 11/05/24 10:48 Diazepam Inj 5 Mg/Ml Vial 2 Ml IVP 11/10/24 10:47 Q2HR PRN CIWA SCORE 14-19 Diazepam 5 mg 11/05/24 10:48 Diazepam Inj 5 Mg/Ml Vial 2 Ml IVP X1 PRN Breakthrough Agitation Diazepam 10 mg 11/05/24 10:48 Diazepam Inj 5 Mg/Ml Vial 2 Ml IVP 11/10/24 10:47 Q2HR PRN CIWA SCORE 20-25 Diazepam 2.5 mg 11/05/24 10:48 Diazepam Inj 5 Mg/Ml Vial 2 Ml IVP 11/10/24 10:47 Q2HR PRN CIWA SCORE 8-13 Diazepam 5 mg 11/05/24 11:00 11/05/24 11:17 Diazepam Inj 5 Mg/Ml Vial 2 Ml IM 11/10/24 10:59 5 mg Q6H ALYSIA Administration Divalproex Sodium 500 mg 11/04/24 21:00 11/04/24 20:11 Divalproex Sod Ec 125 Mg Tabec PO 12/04/24 20:59 500 mg HS ALYSIA Administration Finasteride 5 mg 11/04/24 09:00 11/05/24 08:10 Finasteride 5 Mg Tablet PO 12/04/24 08:59 5 mg QDAY ALYSIA Administration Folic Acid 1 mg 11/04/24 09:00 11/05/24 08:11 Folic Acid 1 Mg Tablet PO 12/04/24 08:59 1 mg QDAY ALYSIA Administration Glucagon 1 mg 11/04/24 00:42 Glucagon Inj 1 Mg Vial IM Q15MIN PRN BG <70, and no IV access Heparin Sodium (Porcine) 5,000 unit 11/04/24 09:00 11/05/24 08:11 Heparin Sod Inj 5000 Unit/Ml Vial SC 11/18/24 08:59 5,000 unit Q12HR ALYSIA Administration Insulin Human Lispro 0 unit 11/04/24 07:30 11/05/24 08:19 Insulin Lispro (Admelog) 1 Unit/0.01 Ml Unit SC 12/04/24 07:29 1 unit ACHS ALYSIA Administration Protocol Lisinopril 10 mg 11/04/24 16:15 11/05/24 08:13 Lisinopril 2.5 Mg Tablet PO 12/04/24 16:14 10 mg QDAY ALYSIA Administration Ondansetron HCl 4 mg 11/04/24 00:42 11/04/24 22:29 Ondansetron Inj 2 Mg/Ml Inj 2 Ml IVP 12/04/24 00:41 4 mg Q6H PRN Administration NAUSEA OR VOMITING Protocol Pantoprazole Sodium 40 mg 11/04/24 15:45 11/05/24 08:10 Pantoprazole 40 Mg Tablet PO 12/04/24 15:44 40 mg QDAY ALYSIA Administration Sennosides 1 tab 11/04/24 00:42 Senna Tablet PO 12/04/24 00:41 QDAY PRN constipation Protocol Thiamine HCl 100 mg 11/04/24 09:00 11/05/24 08:11 Thiamine 100 Mg Tablet PO 12/04/24 08:59 100 mg QDAY ALYSIA Administration Plan Assessment: 68-year-old male with past medical history of hypertension, BPH, alcohol use disorder and bipolar disorder. Patient was admitted for acute alcohol intoxication requiring close monitoring for alcohol withdrawal along with ASHLEY and hypotension. #Acute encephalopathy #Acute alcohol intoxication #Alcohol use disorder CIWA 31 --> 11 at 3:07pm Rapid response at 10:40am (see event note) Plan: - CIWA still not controlled - Consider ICU upgrade is CIWA nnot improving - CIWA protocol, Librium 25 every 6 if CIWA greater than 9 - Continue thiamine 100 mg daily and folate 1 mg daily - Counseled on complete alcohol cessation - Social service consultation placed #ASHLEY, resolved #Hypotension, hypovolemia (resolved) #Hyperglycemia (resolved) A1c 5.2 #Hx of Hypertension Patient on home lisinopril 10 mg p.o. daily Plan: Restarted lisinopril 10 mg daily #Hx of BPH Patient on finasteride 5 mg p.o. daily ED provider ordered Matthews Plan: DC Matthews and do bladder training Restarted home medication #Hx of Bipolar disorder #Hx of Depression Patient is on Abilify 5 mg p.o. at bedtime along with valproic 500 mg p.o. at bedtime Plan: Restarted home medications Health Maintenance: Diet: Cardiac GI prophylaxis: protonix 40 daily DVT prophylaxis: Heparin subcu Dispo: CIWA protocol Code: DNR Case discussed with my attending Dr. Sanz, and senior resident, Dr. Francesca Ruiz MD PGY-1 Attending Provider Attestation/Addendum Patient was seen and examined during rapid response today. He has high CIWA score. He is encephalopathic. The patient got diazepam IV. Will continue to monitor. I discussed with and supervised the resident physician who took care of this patient. I agree with the assessment and plan as above.
--- NOTE | 2024-11-05 13:01 | PC.NURSE ---
Reyna richard called due to pt trying to force his way out to leave, pt is very angry and aggressive, ICU team here to see pt, pt will be moved to ICU
[2024-11-05] MEDS: DIAZEPAM INJ 5 MG/ML VIAL 2 ML IVP ×3 (13:09→15:49)
[2024-11-05] MEDS: POTASSIUM CHL 10 mEq IVPB 10 MEQ/100 ML BAG 100 MEQ IV ×4 (14:06→19:18)
[2024-11-05 14:34] LABS: Ammonia 34 uMol/L (11-32)
[2024-11-05 14:49] LABS: Hepatitis B Core Antibody IgM Non Reactive (Non React); Hepatitis B Surface Ab NonReact(Not Immune) (Immune); Hepatitis B Surface Antigen Non Reactive (Non React); Hepatitis C Antibody Non Reactive (Non React)
[2024-11-05] MEDS: POT PHOS 15 mMol in NS 250 ML 15 MMOL/250 ML BAG 62.5 MMOL IV (14:52)
[2024-11-05] MEDS: DEXMEDETOMIDINE 400 MCG IVPB 400 MCG/100 ML BAG IV (15:03)
--- NOTE | 2024-11-05 15:04 | PD.RESHP ---
Documentation for date of: 11/05/24 HPI History of Present Illness History of present illness: HPI: 68-year-old male with a reported past medical history of bipolar 2, depression, OCD, PTSD, anxiety, alcohol use disorder versus one episode seizure, and questionable previous TX status post stent placement, who presented to the ED on 11/03/2024 BIBA due to alcohol intoxication. He was found to be hypotensive at the time of arrival and had no acute complaints. Per the patient he arrived to the hospital from his girlfriend's house. He was admitted due to hypotension and for alcohol withdrawal. Patient was upgraded to the ICU due to increased supervision necessary for treatment of alcohol withdrawal. Per the patient's ex-, the patient has been binge drinking for the past 2 weeks. Also per the patient's , the patient has been depressed recently and has an appointment with a psychiatrist on 11/07/2024. The patient is a poor historian and is A&O X1. Per the patient patient arrived at his ex-'s place of residence where he began to binge drink. He reported feeling alcohol intoxication and dizziness, at which time he asked his ex- to call an ambulance. Per the ex-, patient was vomiting several times after binge drinking and his oral intake had decreased. ED Course: The patient was hypotensive on arrival to the ED with a pressure of 65/39 pulse 63, respiratory rate 17, temp 98.6, O2 sat 90 on room air. Was resuscitated with 3 L of IV normal saline and his blood pressure recovered to 94/58. Lactic acid was 2.1 and he had a normal anion gap. Blood alcohol level was 204. Head CT was negative. Patient was admitted in the hospital for further treatment and evaluation with his volume depletion and alcohol abuse and hypotension. Past Medical History Neuro: Transient Ischemic Attacks (TIA) and Seizures CVC: Previous Myocardial Infarction, Heart Murmur, Coronary Artery Disease, Peripheral Vascular Disease, Hypercholesterolemia, Edema and Hypertension Resp: Hx Asthma GI: Cirrhosis, Gastrointestinal Bleed, Esophageal Varices, Obstructive Bowel and Obesity : Positive Genitourinary Disorders MSK: Arthritis and Carpal Tunnel Syndrome Endo: Diabetes Mellitus Type 2 Heme/Onc: Positive Blood Disorders and Anemia Psych: Positive Psychiatric Problems, Bipolar Disorder, Depression, Anxiety, Attention Deficit Disorder, Attention Deficit Hyperactivity Disorder and Post Traumatic Stress Disorder Other History: Positive Hospitalization, Blood Transfusions and MRSA Family History Surgical: Coronary Stent, Cardiac Catheterization, Abdominal Surgery, Gastric Bypass Surgery, Bowel Surgery and Nephrectomy Social History Smoking: Current some day smoker Alcohol: Current Alcohol Frequency: 3 or More Drinks per Day Last Alcohol: Just Prior to Arrival Review of Systems: -General: Admits to being anxious. - HEENT: Denies heasache, congestion, or sore throat. -Cardiac: Denies chest pain or palpitations. -Pulmonary: Denies shortness of breath or cough. -GI: Denies nausea, vomiting, diarrhea, constipation, melena, or hematochezia. -: Denies dysuria, hematuria, frequency, or urgency. -MSK: Denies pain in the extremities, joints, or myalgias. -Neuro: Denies weakness, numbness, vision changes, or speech difficulty. Interval history: 11/05/2024: The patient was extremely agitated and a rapid response and a code richard was called on the floor. Patient was given diazepam and Librium by the primary team, however he continued to be agitated and was transferred to the ICU. Exam Vital Signs Temp Pulse Resp BP Pulse Ox O2 Del Method O2 Flow Rate 97.8 F 101 H 20 143/97 H 95 Room Air 1 11/05/24 12:22 11/05/24 12:22 11/05/24 12:22 11/05/24 12:22 11/05/24 12:22 11/05/24 11:05 11/05/24 04:00 Narrative Exam General: Awake and in no acute distress. Conversational and non-toxic appearing. Neurologic: GCS 15. Alert and oriented x1. Confused, not oriented to place. No gross neurological deficit, and patient able to move all 4 extremities. HEENT: Normocephalic, atraumatic, mucous membranes moist. Pupils reactive to light. Heart: Grade 3 systolic ejection murmur heard at the right and left sternal borders and mid axillary lines bilaterally. Regular rate and rhythm. Lungs: Clear to auscultation bilaterally with no wheezing or crackles. Abdomen: Midline surgical scar. Soft, nondistended, nontender, positive bowel sounds. No guarding or rebound tenderness. Extremities: Trace pitting edema lower extremities bilaterally below the knee. 2+ radial and dorsalis pedis pulses bilaterally. Skin: Warm. Dry. No rash or ecchymoses. Results: Labs 11/07/24 04:39 11/07/24 04:39 Labs: Short CBC 11/05/24 Range/Units 04:07 WBC 6.5 (3.8-10.6) Thou/mm3 Hgb 11.7 L (13.5-16.0) g/dL Hct 34.7 L (41.0-53.0) % Plt Count 128 L (140-440) Thou/mm3 BMP 11/05/24 04:07 Sodium 141 Potassium 3.4 D Chloride 108 H Carbon Dioxide 22.0 BUN 15 Creatinine 0.8 Glucose 125 H Calcium 8.0 L Liver Function 11/05/24 Range/Units 04:07 Total Bilirubin 0.5 (0.3-1.2) mg/dL AST 22 (0-34) U/L ALT 16 (10-49) U/L Alkaline Phosphatase 114 (46-116) U/L Albumin 3.3 L (3.4-4.8) gm/dL Quality Measures Quality Measures none Advance care planning discussed with:: significant other Medications Home Medications and Allergies Home Medications ?Medication ?Instructions ?Recorded ?Confirmed ?Type aripiprazole 5 mg tablet (Abilify) 5 mg PO HS 01/09/23 11/04/24 History aspirin 81 mg tablet,delayed 81 mg PO QDAY 01/09/23 11/04/24 History release atorvastatin 80 mg tablet 80 mg PO HS 01/09/23 11/04/24 History buspirone 7.5 mg tablet 7.5 mg PO QDAY 01/09/23 11/04/24 History divalproex 500 mg tablet,extended 500 mg PO HS 01/09/23 11/04/24 History release 24 hr ferrous sulfate 325 mg (65 mg 325 mg PO QDAY 01/09/23 11/04/24 History iron) tablet lisinopril 10 mg tablet 10 mg PO QDAY 01/09/23 11/04/24 History Allergies Allergy/AdvReac Type Severity Reaction Status Date / Time No Known Allergies Allergy Verified 11/03/24 20:23 Visit Medications Acetaminophen (Acetaminophen 325 Mg Tablet) 650 mg PO Q6H PRN PRN Reason: PAIN SCALE 1-3 (mild Stop: 12/04/24 00:41 Last Admin: 11/04/24 22:29 Dose: 650 mg Aripiprazole (Aripiprazole 5 Mg Tablet) 5 mg PO HS [facility] Stop: 12/04/24 20:59 Last Admin: 11/04/24 20:11 Dose: 5 mg Chlordiazepoxide HCl (Chlordiazepoxide Hcl 25 Mg Capsule) 75 mg PO Q6HR [facility] Stop: 11/10/24 17:59 Diazepam (Diazepam Inj 5 Mg/Ml Vial 2 Ml) 2.5 mg IVP X1 PRN PRN Reason: Breakthrough Agitation Stop: 12/05/24 11:31 Diazepam (Diazepam Inj 5 Mg/Ml Vial 2 Ml) 2.5 mg IVP Q2HR PRN PRN Reason: CIWA SCORE 14-19 Stop: 11/10/24 10:47 Diazepam (Diazepam Inj 5 Mg/Ml Vial 2 Ml) 5 mg IVP Q2HR PRN PRN Reason: CIWA SCORE 20-25 Stop: 11/10/24 10:47 Last Admin: 11/05/24 13:09 Dose: 5 mg Diazepam (Diazepam Inj 5 Mg/Ml Vial 2 Ml) 1.25 mg IVP Q2HR PRN PRN Reason: CIWA SCORE 8-13 Stop: 11/10/24 10:47 Divalproex Sodium (Divalproex Sod Ec 125 Mg Tabec) 500 mg PO HS [facility] Stop: 12/04/24 20:59 Last Admin: 11/04/24 20:11 Dose: 500 mg Finasteride (Finasteride 5 Mg Tablet) 5 mg PO QDAY [facility] Stop: 12/04/24 08:59 Last Admin: 11/05/24 08:10 Dose: 5 mg Folic Acid (Folic Acid 1 Mg Tablet) 1 mg PO QDAY [facility] Stop: 12/04/24 08:59 Last Admin: 11/05/24 08:11 Dose: 1 mg Heparin Sodium (Porcine) (Heparin Sod Inj 5000 Unit/Ml Vial) 5,000 unit SC Q12HR [facility] Stop: 11/18/24 08:59 Last Admin: 11/05/24 08:11 Dose: 5,000 unit Potassium Chloride (Kcl Ivpb) 10 meq in 100 mls @ 100 mls/hr IV Q1H [facility] Stop: 11/05/24 17:29 Last Admin: 11/05/24 14:53 Dose: 100 mls/hr Potassium Phosphate (Pot Phos 15 Mmol In Ns 250 Ml) 15 mmol in 250 mls @ 62.5 mls/hr IV X1 ONE Stop: 11/05/24 17:29 Last Admin: 11/05/24 14:52 Dose: 62.5 mls/hr Lisinopril (Lisinopril 2.5 Mg Tablet) 10 mg PO QDAY [facility] Stop: 12/04/24 16:14 Last Admin: 11/05/24 08:13 Dose: 10 mg Ondansetron HCl (Ondansetron Inj 2 Mg/Ml Inj 2 Ml) 4 mg IVP Q6H PRN; Protocol PRN Reason: NAUSEA OR VOMITING Stop: 12/04/24 00:41 Last Admin: 11/04/24 22:29 Dose: 4 mg Pantoprazole Sodium (Pantoprazole 40 Mg Tablet) 40 mg PO QDAY [facility] Stop: 12/04/24 15:44 Last Admin: 11/05/24 08:10 Dose: 40 mg Sennosides (Senna Tablet) 1 tab PO QDAY PRN; Protocol PRN Reason: constipation Stop: 12/04/24 00:41 Thiamine HCl (Thiamine 100 Mg Tablet) 100 mg PO QDAY [facility] Stop: 12/04/24 08:59 Last Admin: 11/05/24 08:11 Dose: 100 mg Discontinued Medications Aripiprazole (Aripiprazole 5 Mg Tablet) 5 mg PO X1 ONE Stop: 11/04/24 00:43 Last Admin: 11/04/24 01:43 Dose: 5 mg Chlordiazepoxide HCl (Chlordiazepoxide Hcl 25 Mg Capsule) 25 mg PO Q6HR PRN PRN Reason: CIWA >9 Stop: 11/07/24 00:43 Chlordiazepoxide HCl (Chlordiazepoxide Hcl 25 Mg Capsule) 25 mg PO Q6HR PRN PRN Reason: CIWA >9 Stop: 11/10/24 08:03 Last Admin: 11/05/24 08:14 Dose: 25 mg Chlordiazepoxide HCl (Chlordiazepoxide Hcl 25 Mg Capsule) 25 mg PO Q6HR [facility] Stop: 11/10/24 11:59 Last Admin: 11/05/24 11:18 Dose: 25 mg Chlordiazepoxide HCl (Chlordiazepoxide Hcl 25 Mg Capsule) 50 mg PO Q6HR [facility] Stop: 11/10/24 11:59 Last Admin: 11/05/24 12:31 Dose: Not Given Chlordiazepoxide HCl (Chlordiazepoxide Hcl 25 Mg Capsule) 25 mg PO X1 ONE Stop: 11/05/24 12:31 Last Admin: 11/05/24 12:31 Dose: 25 mg Dextrose (Dextrose 50%-Water Inj 50 Ml Syringe) 25 ml IV Q15MIN PRN PRN Reason: BG 50-70 responsive npo pt Stop: 12/04/24 00:41 Dextrose (Dextrose 50%-Water Inj 50 Ml Syringe) 50 ml IV Q15MIN PRN PRN Reason: BG <50 OR BG <70 & pt unresponsive Stop: 12/04/24 00:41 Diazepam (Diazepam Inj 5 Mg/Ml Vial 2 Ml) 5 mg IVP Q2HR PRN PRN Reason: CIWA SCORE 14-19 Stop: 11/10/24 10:47 Diazepam (Diazepam Inj 5 Mg/Ml Vial 2 Ml) 5 mg IVP X1 PRN PRN Reason: Breakthrough Agitation Diazepam (Diazepam Inj 5 Mg/Ml Vial 2 Ml) 10 mg IVP Q2HR PRN PRN Reason: CIWA SCORE 20- Stop: 11/10/24 10:47 Diazepam (Diazepam Inj 5 Mg/Ml Vial 2 Ml) 2.5 mg IVP Q2HR PRN PRN Reason: CIWA SCORE 8-13 Stop: 11/10/24 10:47 Diazepam (Diazepam Inj 5 Mg/Ml Vial 2 Ml) 5 mg IM Q6H [facility] Stop: 11/10/24 10:59 Last Admin: 11/05/24 11:17 Dose: 5 mg Diazepam (Diazepam Inj 5 Mg/Ml Vial 2 Ml) 1.25 mg IVP Q2HR PRN PRN Reason: CIWA SCORE 8-13 Stop: 11/10/24 10:47 Diazepam (Diazepam Inj 5 Mg/Ml Vial 2 Ml) 5 mg IVP Q2HR PRN PRN Reason: CIWA SCORE 20-25 Stop: 11/10/24 10:47 Diazepam (Diazepam Inj 5 Mg/Ml Vial 2 Ml) 2.5 mg IVP Q2HR PRN PRN Reason: CIWA SCORE 14-19 Stop: 11/10/24 10:47 Diazepam (Diazepam Inj 5 Mg/Ml Vial 2 Ml) 2.5 mg IVP X1 PRN PRN Reason: Breakthrough Agitation Divalproex Sodium (Divalproex Sod Ec 125 Mg Tabec) 500 mg PO X1 ONE Stop: 11/04/24 00:43 Last Admin: 11/04/24 01:43 Dose: 500 mg Glucagon (Glucagon Inj 1 Mg Vial) 1 mg IM Q15MIN PRN PRN Reason: BG <70, and no IV access Lactated Ringer's (Lactated Ringers) 1,000 mls @ 999 mls/hr IV .Q1H1M ONE Stop: 11/03/24 22:14 Last Admin: 11/03/24 21:18 Dose: Not Given Lactated Ringer's (Lactated Ringers) 1,000 mls @ 999 mls/hr IV .Q1H1M ONE Stop: 11/03/24 22:15 Last Admin: 11/03/24 21:18 Dose: Not Given Sodium Chloride (Ns) 2,000 mls @ 999 mls/hr IV .Q2H1M ONE Stop: 11/03/24 23:16 Last Infusion: 11/03/24 23:25 Dose: Infused Sodium Chloride (Ns) 1,000 mls @ 999 mls/hr IV .Q1H1M ONE Stop: 11/03/24 23:34 Last Infusion: 11/04/24 00:04 Dose: Infused Sodium Chloride (Ns) 1,000 mls @ 999 mls/hr IV .Q1H1M ONE Stop: 11/04/24 01:03 Last Infusion: 11/04/24 01:15 Dose: Infused Magnesium Sulfate (Magnesium Sulfate Ivpb) 4 gm in 50 mls @ 12.5 mls/hr IV X1 ONE Stop: 11/04/24 11:46 Last Admin: 11/04/24 08:49 Dose: 12.5 mls/hr Magnesium Sulfate (Magnesium Sulfate Ivpb) 4 gm in 50 mls @ 12.5 mls/hr IV X1 ONE Stop: 11/05/24 11:19 Last Admin: 11/05/24 08:10 Dose: 12.5 mls/hr Insulin Human Lispro (Insulin Lispro (Admelog) 1 Unit/0.01 Ml Unit) 0 unit SC [facility]; Protocol Stop: 12/04/24 07:29 Last Admin: 11/05/24 11:26 Dose: Not Given Lorazepam (Lorazepam 0.5 Mg Tablet) 0.5 mg PO Q4HR PRN PRN Reason: CIWA Score 2-6 Stop: 11/09/24 00:41 Last Admin: 11/04/24 06:29 Dose: 0.5 mg Lorazepam (Lorazepam 0.5 Mg Tablet) 1 mg PO Q4HR PRN PRN Reason: CIWA SCORE 7-11 Stop: 11/09/24 00:41 Last Admin: 11/04/24 23:56 Dose: 1 mg Lorazepam (Lorazepam 0.5 Mg Tablet) 2 mg PO Q4HR PRN PRN Reason: CIWA SCORE 12-15 Stop: 11/09/24 00:41 Last Admin: 11/05/24 08:12 Dose: 2 mg Potassium Phos/Sodium Phos (Naph,[facility] 1 Packet (1.5 Gm)) 2 packet PO X1 ONE Stop: 11/05/24 07:10 Last Admin: 11/05/24 08:11 Dose: 2 packet Assessment & Plan Plan Summary 68-year-old male with a past medical history of bipolar 2, depression, OCD, PTSD, anxiety, alcohol use disorder versus seizure disorder, questionable previous TX status post stent placement, admitted to the ICU due to alcohol withdrawal. Patient is being treated with multiple benzodiazepines. Admitted to ICU for severe alcohol withdrawal. Neuro #Acute encephalopathy #Alcohol use disorder #Alcohol withdrawal - Patient is confused, disoriented, and severely agitated, kicking, attempting to bite, and throwing items at staff - Patient appears to be having auditory hallucinations - Likely combination of alcohol withdrawal, bipolar 2, PTSD, and anxiety - Blood alcohol level was 204 on arrival - CIWA 31 on ICU admission, no seizure episodes since admission Plan: - Patient's agitation was subdued with 10 mg diazepam, 190 mg phenobarbital x 2, and Precedex drip started - Will continue to monitor agitation and titrate with diazepam, phenobarbital, and Precedex - 4 point restraints required due to patient being combative - 1 on 1 Sitter, neuro checks every 2 hours, seizure precautions - director of social services consult for crisis eval #History of bipolar 2 #History of depression #History of OCD #History of PTSD #History of anxiety - Patient sees a psychiatrist outpatient for these conditions - Patient mentions that he takes lithium, Abilify, Seroquel, and prozac Plan: - Holding home Prozac and Seroquel, will consider starting patient on ziprasidone tomorrow - Follow-up outpatient psych Cardiac #Hypotension (Resolved) - Blood pressure 65/39 on arrival - Improved to 94/50 3:08 liters of fluid in the ED - Likely due to acute alcohol intoxication at time of hospital admission - 143/97 on ICU transfer, expected to decrease with benzodiazepine treatment Plan: - Monitor blood pressure and titrate benzodiazepine medications to maintain a MAP above 65 #History of hypertension # Questionable history of previous TX status post stent placement - Patient takes lisinopril at home - Per patient he does not see a hospital television rental clerk Plan: - Continue home lisinopril - Monitor blood pressure Pulmonary #Questionable history of asthma - Patient endorses a history of asthma Plan: - Monitor end-tidal CO2, respiratory rate, and respiratory drive given the treatment with benzodiazepines in the setting of alcohol withdrawal GI #Resolving transaminitis #Hyperammonemia #Hypoalbuminemia #Cirrhosis - Transaminitis likely due to alcohol intoxication at time of admission, resolving upon admission to ICU - Ammonia slightly elevated at 34, also likely alcohol related - Hypoalbuminemia most likely secondary to cirrhosis and history of alcohol use -Patient takes atorvastatin at home -Patient's acute encephalopathy, agitation, and apparent hallucinations are likely due to alcohol withdrawal and less likely due to hepatic encephalopathy Plan: - Resume home atorvastatin - Social service consult for crisis eval regarding alcohol abuse - Monitor LFTs - Consider lactulose if alcoholic withdrawal treatment is insufficient for resolution of patient's agitation in the presence of supporting evidence for the clinical diagnosis of hepatic encephalopathy Renal #Resolved ASHLEY #Resolved hyperkalemia #Resolved hypomagnesemia - Patient's creatinine lexi to 1.4 since admission, has since resolved - BUN stable - Potassium lexi to 5.8 during admission, has since resolved - Magnesium fell to 1.3 since admission, has since resolved - Consider electrolyte abnormalities due to alcohol intoxication versus malnutrition versus dehydration Plan: - Monitor with daily labs - Replace electrolytes as needed - D5W NS for maintenance Infectious Disease -No pertinent problems, chest x-ray on admission 11/03/2024 negative for acute disease. Endocrine # Questionable history of type 2 diabetes - Patient takes no known home medications for diabetes -A1c normal 5.2 Plan: - Monitor blood glucose with daily labs Heme #Normocytic normochromic anemia #Thrombocytopenia #Iron deficiency anemia - Hemoglobin 11.7, hematocrit 34.7, MCV 97, platelets 128 on 11/05/2024 upon admission to the ICU - Consider anemia due to alcohol use versus nutritional deficiency versus cirrhosis - Consider dehydration in the presence of thrombocytopenia - Iron 40mcg/dl on 11/04/2024, consider in the presence of nutritional deficiency versus alcohol abuse Plan: - Monitor with daily CBC labs - Continue Thiamine and folic acid MSK -No pertinent problems. Skin -No pertinent problems. Urogenital #Questionable history of BPH - Patient has a history of BPH per ED physician review of history - Patient denies any issue with voiding or any prostate issue to the ICU team - Patient is prescribed tamsulosin outpatient Plan: - Hold tamsulosin for now - DC Matthews due to combativeness Lines/Access Peripheral IVs Nutrition N.p.o. due to combativeness and agitation Sedation/Analgesia Precedex drip titrate to RASS goal of 0, wean as tolerated Phenobarbital once Precedex weaned DVT Prophylaxis Patient is combative and agitated, DVT prophylaxis not indicated GI Prophylaxis Protonix Code Status Full code Disposition: Patient was admitted to the ICU. Became extremely agitated, combative, throwing items, trying to bite and kick staff, and trying to get out of bed. Currently the patient is in 4 point restraints, has a sitter, and is on psych hold. Patient was seen and discussed with my attending physician Dr. Faustino Ortega MD and my senior resident Dr. Terence Sierra MD PGY-3. Spencer Gramajo DO PGY-1. Attending Provider Attestation/Addendum Patient seen and examined with above resident, Spencer Gramajo DO. I agree with the findings, assessment, and plan of care as documented except for any differences below. Patient with multiple rapid responses today due to severe agitation. Noted limited dosing of platelet for CIWA protocol overnight. He is significantly delayed in adequate treatment course. Will transfer to ICU for close monitoring with end-tidal CO2 continuously being tracked. Patient given multiple doses of diazepam with limited benefit. Will continue on protocol with as needed dosing but 2 doses of phenobarbital to be loaded. Additional workup for secondary etiologies for acute encephalopathy also being done. Patient's ex- was contacted who was able to corroborate that patient has been drinking heavily for the previous few weeks. He also has a significant history of bipolar disorder and is unclear if he is taking his medication or not. Patient is unsafe anywhere else and will continue to have one-to-one sitter at bedside along with ICU nursing. Total critical care time: I personally spent 50 minutes for review of physiologic parameters, directing plan of care throughout the day, coordination of care with other specialties, and counseling patient at bedside. This is exclusive of time spent teaching of staff following separate billable procedures. Patient remains at significant risk for further morbidity and mortality warranting close monitoring and care only available in the ICU. Patient required critical care services for severe alcohol withdrawal syndrome/delirium tremens, bipolar disorder, cirrhosis.
[2024-11-05 15:39] LABS: INR 1.0 (0.9-1.3); Partial Thromboplastin Time 31.5 Seconds (22.0-36.0); Prothrombin Time 10.7 Seconds (9.0-12.2)
[2024-11-05] MEDS: PHENobarbital INJ 130 MG/1 ML VIAL 190 MG IM ×2 (15:49→16:05)
--- NOTE | 2024-11-05 17:10 | PC.SS ---
DUST COLLECTOR TREATER notified by ICU resident that patient will require psychiatric evaluation. Criteria for evaluation based on danger to self and danger to others. Patient had code arndt generated today. Patient possesses history of Bi-Polar disorder. DUST COLLECTOR TREATER informed resident that evaluation will occur once patient is medically cleared. 1:1 sitter assigned.
--- NOTE | 2024-11-05 18:26 | PC.NURSE ---
at 1700, pt became combative again, kicking and very agitated, Dr. Putnam at bedside order received for 4 point restraints
--- NOTE | 2024-11-05 18:27 | PC.NURSE ---
at 1535, pt became very agitated, combative, out of bed, bedside storage cart thrown by patient, Avila Kaminski and Indy Kaminski at bedside, orders received for valium and phenobarbatol, and precedex started, leslee arndt called security at bedside, pt returned to bed with bilateral soft wrist restraints
[2024-11-06] VITALS (44 sets, daily range): BP systolic 80–168; BP diastolic 46–92; PULSE 45–75; RESP 0–21; TEMP 36.3–36.4; O2SAT 88–99; BMI 24.1
[2024-11-06] MEDS: DEXMEDETOMIDINE 400 MCG IVPB 400 MCG/100 ML BAG IV
--- NOTE | 2024-11-06 00:36 | PC.NURSE ---
Pt began to become slightly aggitated, CIWA score increased from 7 to 11. As per MD Saini, titrate Precedex gtt as per protocol to achieve desired RASS goal then utilize Valium PRN for CIWA protocol if maxed out on Precedex gtt.
--- NOTE | 2024-11-06 04:42 | PC.NURSE ---
Pt refusing morning labs despite information provided about the importance of reviewing current lab values. MD Saini informed, no further orders provided
[2024-11-06] MEDS: DEXTROSE 5%-NS 1,000 ML 125 ML IV ×2 (07:00→15:39)
[2024-11-06] MEDS: DIAZEPAM INJ 5 MG/ML VIAL 2 ML IVP (07:41)
--- NOTE | 2024-11-06 07:58 | EKG_ITS ---
[facility] Test Date: 2024-11-06 Pat Name: RANDI MOHAN [facility] Gender: Male Photograph Mounter: MANUELITO : 1955 Requested By: Spencer Gramajo Order Number: [id number] Reading MD: Spencer Gramajo Measurements Intervals Ava Rate: 46 P: 38 IL: 177 QRS: 28 QRSD: 105 T: 52 QT: 517 QTc: 453 Interpretive Statements SINUS BRADYCARDIA POSSIBLE RIGHT VENTRICULAR CONDUCTION DELAY PROLONGED QT INTERVAL Compared to ECG 11/03/2024 20:36:01 Prolonged QT interval now present Sinus arrhythmia no longer present Early repolarization no longer present /store/[id number]
[2024-11-06] MEDS: HEPARIN SOD INJ 5000 UNIT/ML VIAL SC ×2 (08:23→21:11)
[2024-11-06 08:32] LABS: Basophils # (Auto) 0.0 Thou/mm3 (0.0-0.2); Basophils % (Auto) 1 % (0-2.5); Eosinophils # (Auto) 0.4 Thou/mm3 (0.0-0.5); Eosinophils % (Auto) 10 % (0-10); Hematocrit 32.4 % (41.0-53.0); Hemoglobin 11.2 g/dL (13.5-16.0); Immature Granulocytes Auto 0.01 Thou/mm3 (0.00-0.00); Lymphocytes # (Auto) 1.1 Thou/mm3 (1.0-4.8); Lymphocytes % (Auto) 28 % (10-50); Mean Corpuscular HGB Conc 34.6 g/dl (31.0-37.0); Mean Corpuscular Hemoglobin 34.1 pg (25.0-35.0); Mean Corpuscular Volume 99 fL (80-100); Monocytes # (Auto) 0.3 Thou/mm3 (0.0-0.8); Monocytes % (Auto) 8 % (0-12); Neutrophils # (Auto) 2.2 Thou/mm3 (1.8-7.7); Neutrophils % (Auto) 54 % (37-80); Nucleated Red Blood Cell # 0.00 Thou/mm3 (0.00-0.00); Nucleated Red Blood Cell % 0 /100 WBC (0); Platelet Count 108 Thou/mm3 (140-440); RDW Standard Deviation 48.4 fL (35.1-43.9); Red Blood Count 3.28 Miln/mm3 (4.50-5.90); White Blood Count 4.0 Thou/mm3 (3.8-10.6)
[2024-11-06 08:56] LABS: Alanine Aminotransferase 13 U/L (10-49); Albumin, Serum 2.9 gm/dL (3.4-4.8); Albumin/Globulin Ratio 1.5 (1.2-2.2); Alkaline Phosphatase 107 U/L (46-116); Anion Gap 9 (7-16); Aspartate Amino Transferase 23 U/L (0-34); BUN/Creatinine Ratio 13 Ratio (12-20); Bilirubin,Total 0.4 mg/dL (0.3-1.2); Blood Urea Nitrogen 10 mg/dL (9-23); Calcium 8.0 mg/dL (8.3-10.6); Calcium (Corrected) 8.9 mg/dL (8.5-10.1); Carbon Dioxide 22.4 mMol/L (20.0-31.0); Chloride 110 mMol/L (98-107); Creatinine (Component) 0.8 mg/dL (0.6-1.3); Estimated Creatinine Clearance 111.5 mL/min (>60); Globulin 2.0 gm/dL (2.3-3.5); Glucose 114 mg/dL (74-106); Magnesium 1.5 mg/dL (1.6-2.6); Osmolality,Calculated 281 (275-295); Phosphorous 2.8 mg/dL (2.4-5.1); Potassium 4.3 mMol/L (3.4-5.1); Sodium 141 mMol/L (136-145); Total Protein 4.9 gm/dL (5.7-8.2); eGFR > 60 See Note
[2024-11-06 09:09] LABS: Syphilis Reactive (Nonreactive)
[2024-11-06 09:10] LABS: MHATP/TP-PA* See Sep Rpt
[2024-11-06 09:44] LABS: HIV (1&2) Antibody Rapid Non-Reactive
[2024-11-06] MEDS: Magnesium Sulfate 4 GM Ivpb 4 GM/50 ML BAG IV (09:53)
--- NOTE | 2024-11-06 10:06 | ECHO_ITS ---
Transthorac ic Echo Report Ht 76 Wt 19 (in): (lb): 8 Exam Location: Echo Lab Statu Inpatient s: Sonograph Renetta Hutton er: Indicatio ns: Procedure Performed: BP 143 / 91 HR 49 : : MEASUREMEN (Male / Female) Normal TS Values DOPPLER AV Peak Velocity 256.0 cm/s AV Peak Gradient 26.2 mmHg AV Mean Gradient 14.3 mmHg AV Velocity Time Integral 59.4 cm LVOT Peak Velocity 110.0 cm/s LVOT Peak Gradient 4.8 mmHg LVOT Velocity Time Integral 28.0 cm MV Area PHT 2.3 cm? Mitral E Point Velocity 81.1 cm/s Mitral A Point Velocity 109.0 cm/s Mitral E to A Ratio 0.7 LV E' Lateral Velocity 5.5 cm/s Mitral E to LV E' Lateral Ratio 14.6 LV E' Septal Velocity 6.9 cm/s Mitral E to LV E' Septal Ratio 11.8 FINDING S Left Ventricle Normal left ventricular size, wall thickness, systolic function with no obvious regional wall motion abnormalities. The ejection fraction is visually estimated at 55-60%. There is grade I diastolic dysfunction of the left ventricle (impaired relaxation pattern). Right Ventricle The right ventricle is normal in size and systolic function. Left Atrium The left atrium is normal by two-dimensional, color flow and Doppler imaging with no structural abnormalities, no thrombus formation present. Right Atrium The right atrium is normal by two-dimensional imaging, color flow and Doppler imaging with no structural abnormalities, no thrombus formation present. Atrial Septum The interatrial septum appears normal with no evidence of a shunt. Aort a The aorta is normal by two-dimensional, color flow and Doppler interrogation. Mitral Valve Mild mitral annular calcification. Trace mitral regurgitation. Aortic Valve Moderate aortic valve stenosis. Trace to mild aortic valve regurgitation. Tricuspid Valve The tricuspid valve is normal by two-dimensional, color flow and Doppler interrogation. There is trace tricuspid valve regurgitation. Pulmonic Valve The pulmonic valve is not well visualized. There is no significant pulmonic valve regurgitation. Vesse ls The pulmonary artery appears normal. The inferior vena cava pulmonary and hepatic veins appear normal. Pericard ium The pericardium is normal by two-dimensional imaging. There is no significant pericardial effusion. CONCLUSIO NS Indication: Aortic Murmur All the cardiac structures suboptimally visualized. Normal LV size and wall thickness. Estimated EF at 55-60%. There is grade I diastolic dysfunction. The RV is normal in size and systolic function. Mild MAC. Trace MR, AI and TR. Moderate aortic valve stenosis. No pericardial effusion Lopez Alcala (Electronically Signed) Final Date: 21 November 2024 19:26
[2024-11-06] MEDS: THIAMINE INJ 100 MG/ML VIAL 2 ML IVP (10:14)
[2024-11-06] MEDS: STERILE WATER IV ×3 (10:57→21:12)
[2024-11-06] MEDS: PENICILLIN POT IV ×3 (10:57→21:12)
[2024-11-06] MEDS: SODIUM CHLORIDE IV ×3 (10:57→21:12)
[2024-11-06 11:29] LABS: Folate > 24.00 ng/mL (>5.38); Vitamin B12 1656 pg/mL (211-911)
--- NOTE | 2024-11-06 12:52 | ESPR_ITS ---
<Statement entered by Nghia De MD - 11/07/24 07:39> Patient was seen and examined at bedside. I agree on the assessment and plan on this note as documented by resident Spencer Gramajo DO PGY1. Patient seen examined at bedside, continues to agitated, will continue behavioral restraints for today, screaming and yelling at staff, CIWA score was 22 this morning, patient was given Valium episodes of apnea, will hold CIWA protocol for now patient started on IM Geodon as needed every 6 hours we will keep max dose 40 mg daily, we rechecked patient's QT interval this morning. Patient continues to remain on Precedex gtt., plan is to wean patient off of Precedex and titrate ziprasidone. Patient has one-to-one sitter, neurochecks every 2 hours. Holding home psych medications for now, will consider resuming in a.m. if patient is more calm and able to tolerate p.o. medication. Patient did have transaminitis due to underlying alcohol liver related liver disease improving currently. ASHLEY has resolved. 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 Attempt was made to reach out to patient's PCP however [place]CP [place] currently [place], patient was scheduled for psychiatrist appointment on 11/07 does have diagnosed history of bipolar disorder. Will continue to monitor patient, wean patient off of Precedex and start on antipsychotic medication considering underlying psych history. Case discussed with attending Dr. Jordan BABCOCK. Nghia De MD PGY-2 Documentation for date of: 11/06/24 Subjective Subjective Interval history: HPI: 68-year-old male with a reported past medical history of bipolar 2, depression, OCD, PTSD, anxiety, alcohol use disorder versus one episode seizure, and questionable previous CO status post stent placement, who presented to the ED on 11/03/2024 BIBA due to alcohol intoxication. He was found to be hypotensive at the time of arrival and had no acute complaints. Per the patient he arrived to the hospital from his girlfriend's house. He was admitted due to hypotension and for alcohol withdrawal. Patient was upgraded to the ICU due to increased supervision necessary for treatment of alcohol withdrawal. Per the patient's ex-, the patient has been binge drinking for the past 2 weeks. Also per the patient's , the patient has been depressed recently and has an appointment with a psychiatrist on 11/07/2024. The patient is a poor historian and is A&O X1. Per the patient patient arrived at his ex-'s place of residence where he began to binge drink. He reported feeling alcohol intoxication and dizziness, at which time he asked his ex- to call an ambulance. Per the ex-, patient was vomiting several times after binge drinking and his oral intake had decreased. ED Course: The patient was hypotensive on arrival to the ED with a pressure of 65/39 pulse 63, respiratory rate 17, temp 98.6, O2 sat 90 on room air. Was resuscitated with 3 L of IV normal saline and his blood pressure recovered to 94/58. Lactic acid was 2.1 and he had a normal anion gap. Blood alcohol level was 204. Head CT was negative. Patient was admitted in the hospital for further treatment and evaluation with his volume depletion and alcohol abuse and hypotension. Interval history: 11/05/2024: The patient was extremely agitated and a rapid response and a code richard was called on the floor. Patient was given diazepam and Librium by the primary team, however he continued to be agitated and was transferred to the ICU. 11/06/2024: Patient was on max dose of Precedex overnight. He became severely agitated in the morning and was given 1 dose of 5 mg diazepam, will continue to wean Precedex and will start Geodon IM. Patient became extremely agitated, combative, and tried to bite and kick staff shortly after arrival to ICU on 11/05/2024. Besides being slightly disoriented to place, he had normal mentation on arrival to ICU. He has not had normal mentation since ICU admission. Since ICU admission he has had 2 total episodes of severe agitation with the aforementioned symptoms and actions, the most recent being the morning of 11/06/2024. During the agitation episodes the patient responded well to Valium, as he falls asleep while maintaining adequate respiratory drive. Will continue as needed Valium. CIWA score 22. Blood pressure was soft, discontinued home lisinopril. Patient was slightly hypomagnesemic, received 4 of magnesium. Started subcutaneous heparin. Patient was positive for syphilis serology, started penicillin 11/06/2024. ID consulted. Exam Vital Signs Temp Pulse Resp BP Pulse Ox O2 Del Method O2 Flow Rate 97.4 F 55 L 16 120/86 H 96 Nasal Cannula 2 11/06/24 12:00 11/06/24 12:00 11/06/24 12:00 11/06/24 12:00 11/06/24 12:00 11/06/24 12:00 11/06/24 12:00 Narrative Exam General: Lethargic, however patient has periods of severe agitation, yelling, kicking, and attempting to bite staff. Neurologic: No gross neurological deficit, and patient able to move all 4 extremities. HEENT: Normocephalic, atraumatic, mucous membranes moist. Pupils reactive to light. Heart: Grade 3 systolic ejection murmur heard at the right and left sternal borders and mid axillary lines bilaterally. Bradycardic. Lungs: Clear to auscultation bilaterally with no wheezing or crackles. Abdomen: Midline surgical scar. Soft, nondistended, nontender, positive bowel sounds. No guarding or rebound tenderness. Extremities: Trace pitting edema lower extremities bilaterally below the knee. 2+ radial and dorsalis pedis pulses bilaterally. Skin: Warm. Dry. No rash or ecchymoses. Objective Labs 11/07/24 04:39 11/07/24 04:39 Labs: Laboratory Results - last 24 hr 11/05/24 11/05/24 11/06/24 04:09 14:06 08:10 WBC 4.0 RBC 3.28 L Hgb 11.2 L Hct 32.4 L MCV 99 MCH 34.1 MCHC 34.6 RDW Std Deviation 48.4 H Plt Count 108 L Neut % (Auto) 54 Lymph % (Auto) 28 [place] % (Auto) 8 Eos % (Auto) 10 Baso % (Auto) 1 Neut # (Auto) 2.2 Lymph # (Auto) 1.1 [place] # (Auto) 0.3 Eos # (Auto) 0.4 Baso # (Auto) 0.0 Immature Gran # (Auto) 0.01 H Absolute Nucleated RBC 0.00 Immature Gran % 0 Nucleated RBC % 0 PT 10.7 INR 1.0 APTT 31.5 Sodium 141 Potassium 4.3 D Chloride 110 H Carbon Dioxide 22.4 Anion Gap 9 BUN 10 Creatinine 0.8 Estim Creat Clear Calc 111.5 eGFR > 60 BUN/Creatinine Ratio 13 Glucose 114 H Calculated Osmolality 281 Calcium 8.0 L Corrected Calcium 8.9 Phosphorus 2.8 Magnesium 1.5 L Total Bilirubin 0.4 AST 23 ALT 13 Alkaline Phosphatase 107 Ammonia 34 H Total Protein 4.9 L Albumin 2.9 L Globulin 2.0 L Albumin/Globulin Ratio 1.5 Vitamin B12 1656 H Folate > 24.00 Syphilis Serology Reactive A Hep Bs Antigen Non Reactive Hep Bs Antibody NonReact(Not Immune) L Hep B Core IgM Ab Non Reactive Hepatitis C Antibody Non Reactive HIV 1&2 Antibody Rapid Non-Reactive Quality Measures Quality Measures none Advance care planning discussed with:: significant other Assessment & Plan Assessment Current Active Medications: Generic Name Dose Route Start Last Admin Trade Name Freq PRN Reason Stop Dose Admin Acetaminophen 650 mg 11/04/24 00:42 11/04/24 22:29 Acetaminophen 325 Mg Tablet PO 12/04/24 00:41 650 mg Q6H PRN Administration PAIN SCALE 1-3 (mild Aripiprazole 5 mg 11/04/24 21:00 11/05/24 20:43 Aripiprazole 5 Mg Tablet PO 12/04/24 20:59 Not Given HS ALYSIA Chlordiazepoxide HCl 75 mg 11/05/24 18:00 11/06/24 05:06 Chlordiazepoxide Hcl 25 Mg Capsule PO 11/10/24 17:59 Not Given Q6HR ALYSIA Diazepam 2.5 mg 11/05/24 11:32 Diazepam Inj 5 Mg/Ml Vial 2 Ml IVP 12/05/24 11:31 X1 PRN Breakthrough Agitation Diazepam 2.5 mg 11/05/24 11:31 Diazepam Inj 5 Mg/Ml Vial 2 Ml IVP 11/10/24 10:47 Q2HR PRN CIWA SCORE 14-19 Diazepam 5 mg 11/05/24 11:31 11/06/24 07:41 Diazepam Inj 5 Mg/Ml Vial 2 Ml IVP 11/10/24 10:47 5 mg Q2HR PRN Administration CIWA SCORE 20-25 Diazepam 1.25 mg 11/05/24 11:31 Diazepam Inj 5 Mg/Ml Vial 2 Ml IVP 11/10/24 10:47 Q2HR PRN CIWA SCORE 8-13 Divalproex Sodium 500 mg 11/04/24 21:00 11/05/24 20:43 Divalproex Sod Ec 125 Mg Tabec PO 12/04/24 20:59 Not Given HS ALYSIA Finasteride 5 mg 11/04/24 09:00 11/06/24 10:11 Finasteride 5 Mg Tablet PO 12/04/24 08:59 Not Given QDAY ALYSIA Folic Acid 1 mg 11/04/24 09:00 11/06/24 10:11 Folic Acid 1 Mg Tablet PO 12/04/24 08:59 Not Given QDAY ALYSIA Heparin Sodium (Porcine) 5,000 unit 11/04/24 09:00 11/06/24 08:23 Heparin Sod Inj 5000 Unit/Ml Vial SC 11/18/24 08:59 5,000 unit Q12HR ALYSIA Administration Dexmedetomidine/Sodium Chloride 400 mcg in 100 mls @ 4.635 mls/hr 11/05/24 15:16 11/06/24 10:20 Precedex Ivpb IV 12/05/24 15:15 0 mcg/kg/hr .[id number] PRN 0 mls/hr Per PROTOCOL Titration Protocol 0.2 MCG/KG/HR Dextrose/Sodium Chloride 1,000 mls @ 125 mls/hr 11/06/24 06:45 11/06/24 07:00 D5-Ns IV 12/06/24 06:44 125 mls/hr .Q8H ALYSIA Administration Magnesium Sulfate 4 gm in 50 mls @ 12.5 mls/hr 11/06/24 09:03 11/06/24 09:53 Magnesium Sulfate Ivpb IV 11/06/24 13:02 12.5 mls/hr X1 ONE Administration Penicillin G Potassium 4 mmu/ 54 mls @ 108 mls/hr 11/06/24 11:00 11/06/24 10:57 Sterile Water 4 ml/ Sodium IV 11/06/24 14:00 108 mls/hr Chloride Q4HR ALYSIA Administration Penicillin G Potassium 4 mmu/ 54 mls @ 108 mls/hr 11/06/24 18:00 Sterile Water 4 ml/ Sodium IV 11/13/24 17:59 Chloride Q4HR ALYSIA Lisinopril 10 mg 11/04/24 16:15 11/05/24 08:13 Lisinopril 2.5 Mg Tablet PO 12/04/24 16:14 10 mg QDAY ALYSIA Administration Ondansetron HCl 4 mg 11/04/24 00:42 11/04/24 22:29 Ondansetron Inj 2 Mg/Ml Inj 2 Ml IVP 12/04/24 00:41 4 mg Q6H PRN Administration NAUSEA OR VOMITING Protocol Pantoprazole Sodium 40 mg 11/04/24 15:45 11/06/24 10:12 Pantoprazole 40 Mg Tablet PO 12/04/24 15:44 Not Given QDAY ALYSIA Sennosides 1 tab 11/04/24 00:42 Senna Tablet PO 12/04/24 00:41 QDAY PRN constipation Protocol Thiamine HCl 100 mg 11/06/24 09:30 11/06/24 10:14 Thiamine Inj 100 Mg/Ml Vial 2 Ml IVP 12/06/24 09:29 100 mg QDAY ALYSIA Administration Ziprasidone 20 mg 11/06/24 10:23 Ziprasidone Inj 20 Mg/Ml Vial (Non-Formulary) IM 12/06/24 10:22 Q4HR PRN BREAKTHROUGH AGITATION Plan Summary 68-year-old male with a past medical history of bipolar 2, depression, OCD, PTSD, anxiety, alcohol use disorder versus seizure disorder, questionable previous CO status post stent placement, admitted to the ICU due to alcohol withdrawal. Patient is being treated with multiple benzodiazepines. Admitted to ICU for severe alcohol withdrawal. Neuro #Acute encephalopathy #Alcohol use disorder #Alcohol withdrawal #Possible psychosis versus auditory hallucinations versus visual hallucinations - Patient has episodes where he is confused, disoriented, and severely agitated, kicking, attempting to bite, and throwing items at staff - Patient appears to be having auditory hallucinations, yelling for people who are not there - Likely combination of alcohol withdrawal, bipolar 2, PTSD, possible psychosis, and anxiety - Blood alcohol level was 204 on arrival - CIWA 31 on ICU admission - CIWA 22 morning of 11/06/2024 Plan: - Patient's agitation was subdued with 10 mg diazepam, 190 mg phenobarbital x 2, and Precedex drip started upon arrival to ICU - Continue diazepam as needed for severe agitation - DC phenobarbital - Wean Precedex as tolerated - Start Geodon IM - Continue 4 point restraints, required due to patient being combative - 1 on 1 Sitter, neuro checks every 2 hours, seizure precautions - nutritional services host consult for crisis eval #History of bipolar 2 #History of depression #History of OCD #History of PTSD #History of anxiety - Patient sees a psychiatrist outpatient for these conditions - Patient mentions that he takes lithium, Abilify, Seroquel, and prozac Plan: - Holding home Prozac and Seroquel - Follow-up outpatient psych Cardiac #Hypotension (Resolved) #History of hypertension #Questionable history of previous CO status post stent placement - Blood pressure 65/39 on arrival - Improved to 94/50 3:08 liters of fluid in the ED - Likely due to acute alcohol intoxication at time of hospital admission - 143/97 on ICU transfer, expected to decrease with benzodiazepine treatment - Patient takes lisinopril at home - Blood pressure was slightly soft morning of 11/06/2024 at 112/71, discontinued home lisinopril and blood pressure improved to 120/86 - Per patient he does not see a stock chaser Plan: - Monitor blood pressure, MAP goal 65 - Continue to DC home lisinopril Pulmonary #Questionable history of asthma - Patient endorses a history of asthma Plan: - Monitor end-tidal CO2, respiratory rate, and respiratory drive given the treatment with benzodiazepines in the setting of alcohol withdrawal GI #Transaminitis (resolved) #Hyperammonemia #Hypoalbuminemia #Cirrhosis - Transaminitis during hospital stay likely due to alcohol intoxication at time of admission, resolved - Ammonia slightly elevated at 34, also likely alcohol related - Hypoalbuminemia most likely secondary to cirrhosis and history of alcohol use - Patient takes atorvastatin at home - Patient's acute encephalopathy, agitation, and apparent hallucinations are likely due to alcohol withdrawal and less likely due to hepatic encephalopathy Plan: - Holding home atorvastatin - Social service consult for crisis eval regarding alcohol abuse - Consider lactulose if alcoholic withdrawal treatment is insufficient for resolution of patient's agitation if in the presence of supporting evidence for the clinical diagnosis of hepatic encephalopathy Renal #ASHLEY (Resolved) #Hyperkalemia (Resolved) #Hypomagnesemia - Patient's creatinine lexi to 1.4 since admission, has since resolved - BUN stable - Potassium lexi to 5.8 during admission, has since resolved - Magnesium 1.5 - Consider electrolyte abnormalities due to alcohol intoxication versus malnutrition versus dehydration Plan: - Monitor with daily labs - 4 of magnesium - Continue D5W NS for maintenance Infectious Disease #Syphilis - Syphilis serology positive 11/06/2024 - Per the patient's PCP, the patient has never been treated for syphilis in the past - Patient mentioned that he had syphilis during an episode of severe agitation on 11/05/2024, it is unclear how the patient supposedly knew that he had syphilis since he has never been treated for syphilis in the past according to his PCP Plan: - Penicillin treatment started 11/06/2024, treatment dose for neurosyphilis - ID consulted - Follow-up [facility] for confirmatory test Endocrine #Questionable history of type 2 diabetes - Patient takes no known home medications for diabetes - A1c normal 5.2 - Glucose stable Plan: - Monitor blood glucose with daily labs Heme #Normocytic normochromic anemia #Thrombocytopenia #Iron deficiency anemia - Hemoglobin 11.7, hematocrit 34.7, MCV 97, platelets 128 on 11/05/2024 upon admission to the ICU - Consider anemia due to alcohol use versus nutritional deficiency versus cirrhosis - Consider dehydration in the presence of thrombocytopenia - Iron 40mcg/dl on 11/04/2024, consider in the presence of nutritional deficiency versus alcohol abuse Plan: - Monitor with daily CBC labs - Continue Thiamine and folic acid - Start B12 supplementation MSK -No pertinent problems. Skin -No pertinent problems. Urogenital #Questionable history of BPH - Patient has a history of BPH per ED physician review of history - Patient denied any issue with voiding or any prostate issue to the ICU team - Patient is prescribed tamsulosin outpatient Plan: - Hold tamsulosin for now Lines/Access Peripheral IVs Nutrition N.p.o. due to combativeness and agitation D5W Sedation/Analgesia Precedex drip titrate to RASS goal of 0, wean as tolerated Geodon once Precedex weaned DVT Prophylaxis Heparin subcu GI Prophylaxis Protonix Code Status Full code Disposition: Currently the patient remains on 4 point restraints, has a sitter, and is on psych hold. Patient was seen and discussed with my attending physician Dr. Faustino Ortega MD and my senior resident Dr. Nghia De MD PGY-2. Spencer Gramajo DO PGY-1. Attending Provider Attestation/Addendum Patient seen and examined with above resident, Spencer Gramajo DO. I agree with the findings, assessment, and plan of care as documented except for any differences below. Patient with improving alcohol withdrawal after loading with phenobarbital. Patient remains on diazepam. Component of underlying psychiatric illness as well as positive serology for screening of syphilis. Patient reports that he was diagnosed. He remains somnolent after aggressive adjustments in medications with initiation of antipsychotics via IM route. Will continue to monitor closely in the ICU as he may require sedation with Precedex once again though this has been turned off this morning and patient intermittently having outbursts of behavioral issues hemodynamics suggest against ongoing withdrawal with adequate coverage with use of benzodiazepines. Additionally will need to monitor closely for respiratory status in setting of combining therapy with antipsychotics as well as benzodiazepines. We have not required repeat dosing of phenobarbital and will continue to keep off given the patient's underlying history of cirrhosis as well. Patient once able to tolerate p.o. will need to be started on lactulose to ensure this does not transition into hepatic encephalopathy from elevated ammonia, minimally elevated. Patient's ex- has been surrogate decision-maker and point of contact with ability to give additional history of his psychiatric illness and alcohol abuse. Patient was supposed to see outpatient psychiatrist but unfortunately required hospitalization due to withdrawal as he has been drinking heavily for the previous 2 weeks. Total critical care time: I personally spent 35 minutes for review of physiologic parameters, directing plan of care, and coordination of care. This is exclusive of time spent teaching of staff performing separate billable procedures. Patient continues to require critical care services for alcohol withdrawal syndrome/delirium tremens, acute manic episode/bipolar disorder, cirrhosis. Patient remains at significant risk for further morbidity and mortality warranting close monitoring acutely available in the intensive care unit.
--- NOTE | 2024-11-06 13:21 | PC.SS ---
Update: Patient on 2L nasal cannula. Patient receiving IV antibiotics and IV fluids. Precedix discontinued. Patient received 5mg of valium. CIWA score of 22. Patient exhibiting withdrawal symptoms: shaking and sweating. Patient is afebrile. Patient on 4 point soft restraints. Patient is NPO. Matthews catheter is in place. Cardiology is consulting.
[2024-11-06] MEDS: ZIPRASIDONE INJ 20 MG/ML VIAL (NON-FORMULARY) 10 MG IM (13:58)
--- NOTE | 2024-11-06 16:20 | PD.IDPROG ---
Subjective Subjective Interval history: asked to see due to pos syphilis screen. hiv neg. pt denies prior rx. is here for substance w/d but will not indicate what he uses. ox screen neg but etoh high, so that may be what he uses. Exam Vital Signs Temp Pulse Resp BP Pulse Ox O2 Del Method O2 Flow Rate 97.4 F 49 L 12 143/91 H 97 Nasal Cannula 2 11/06/24 12:00 11/06/24 14:00 11/06/24 14:00 11/06/24 14:00 11/06/24 14:00 11/06/24 12:00 11/06/24 12:00 Objective - Internal Medicine Labs 11/06/24 08:10 11/06/24 08:10 Labs: Laboratory Results - last 24 hr 11/06/24 08:10 WBC 4.0 RBC 3.28 L Hgb 11.2 L Hct 32.4 L MCV 99 MCH 34.1 MCHC 34.6 RDW Std Deviation 48.4 H Plt Count 108 L Neut % (Auto) 54 Lymph % (Auto) 28 [place] % (Auto) 8 Eos % (Auto) 10 Baso % (Auto) 1 Neut # (Auto) 2.2 Lymph # (Auto) 1.1 [place] # (Auto) 0.3 Eos # (Auto) 0.4 Baso # (Auto) 0.0 Immature Gran # (Auto) 0.01 H Absolute Nucleated RBC 0.00 Immature Gran % 0 Nucleated RBC % 0 Sodium 141 Potassium 4.3 D Chloride 110 H Carbon Dioxide 22.4 Anion Gap 9 BUN 10 Creatinine 0.8 Estim Creat Clear Calc 111.5 eGFR > 60 BUN/Creatinine Ratio 13 Glucose 114 H Calculated Osmolality 281 Calcium 8.0 L Corrected Calcium 8.9 Phosphorus 2.8 Magnesium 1.5 L Total Bilirubin 0.4 AST 23 ALT 13 Alkaline Phosphatase 107 Total Protein 4.9 L Albumin 2.9 L Globulin 2.0 L Albumin/Globulin Ratio 1.5 Vitamin B12 1656 H Folate > 24.00 Syphilis Serology Reactive A HIV 1&2 Antibody Rapid Non-Reactive Assessment & Plan A&P Narrative possible syphilis etoh w/d hld by meds htn by meds if syphilis is not confirmed at health dept then ok to stop iv pen unless csf vdrl pos but no csf noted current rx ok for now. ideally csf is obtained and sent for csf vdrl, brigitte if csf glucose is low or if csf pleocytosis noted. if rpr low, then value of lp is low. so you can wait on the value as should be back tomorrow from health dept lab. Time Spent With Patient Time: Total time spent is greater than 50% in coordination of care (as documented) at patient's floor/unit and/or counseling patient:
--- NOTE | 2024-11-06 17:58 | ESCONSULT_ITS ---
RE: RANDI MOHAN : 1955 DATE OF CONSULTATION: 11/06/2024 REFERRING PHYSICIAN: Washington Masters MD. REASON FOR CONSULTATION: Positive serum syphilis screen in a 68-year-old man with alcohol withdrawal. The patient is here mostly for alcohol withdrawal, but screening test showed negative HIV test, negative hepatitis C test with positive RPR. He was put on IV penicillin every 4 hours as a precaution and CSF testing is pending at the health department. I will check on him again. His exam is benign. He is not a very good historian. We are unable to identify the substance use, but his drug screen was negative, but his alcohol levels were rather high, especially if that is the drug that he uses. I will check on him superficially probably or in person on Monday.if test is neg at health dept, then ok to stop the iv pen DT: 16:27:59 TT: 16:42:00 Ref: [id number] - TID: [id number] MTDMeenu
[2024-11-06] MEDS: DIAZEPAM INJ 5 MG/ML VIAL 2 ML 1 MG IVP (19:32)
[2024-11-07] VITALS (17 sets, daily range): BP systolic 141–177; BP diastolic 80–107; PULSE 60–106; RESP 7–23; TEMP 36.1–37.1; O2SAT 95–98
[2024-11-07] MEDS: DEXTROSE 5%-NS 1,000 ML 125 ML IV (00:20)
[2024-11-07] MEDS: STERILE WATER IV ×6 (01:29→22:12)
[2024-11-07] MEDS: PENICILLIN POT IV ×6 (01:29→22:12)
[2024-11-07] MEDS: SODIUM CHLORIDE IV ×6 (01:29→22:12)
[2024-11-07] MEDS: DIAZEPAM INJ 5 MG/ML VIAL 2 ML 1 MG IVP (02:23)
[2024-11-07] MEDS: ACETAMINOPHEN 325 MG TABLET 650 MG PO (03:53)
[2024-11-07 04:58] LABS: Basophils # (Auto) 0.0 Thou/mm3 (0.0-0.2); Basophils % (Auto) 1 % (0-2.5); Eosinophils # (Auto) 0.5 Thou/mm3 (0.0-0.5); Eosinophils % (Auto) 10 % (0-10); Hematocrit 35.3 % (41.0-53.0); Hemoglobin 11.9 g/dL (13.5-16.0); Immature Granulocytes Auto 0.01 Thou/mm3 (0.00-0.00); Lymphocytes # (Auto) 1.3 Thou/mm3 (1.0-4.8); Lymphocytes % (Auto) 24 % (10-50); Mean Corpuscular HGB Conc 33.7 g/dl (31.0-37.0); Mean Corpuscular Hemoglobin 33.5 pg (25.0-35.0); Mean Corpuscular Volume 99 fL (80-100); Monocytes # (Auto) 0.4 Thou/mm3 (0.0-0.8); Monocytes % (Auto) 8 % (0-12); Neutrophils # (Auto) 3.0 Thou/mm3 (1.8-7.7); Neutrophils % (Auto) 57 % (37-80); Nucleated Red Blood Cell # 0.00 Thou/mm3 (0.00-0.00); Nucleated Red Blood Cell % 0 /100 WBC (0); Platelet Count 122 Thou/mm3 (140-440); RDW Standard Deviation 48.9 fL (35.1-43.9); Red Blood Count 3.55 Miln/mm3 (4.50-5.90); White Blood Count 5.3 Thou/mm3 (3.8-10.6)
[2024-11-07 05:36] LABS: Alanine Aminotransferase 15 U/L (10-49); Albumin, Serum 3.1 gm/dL (3.4-4.8); Albumin/Globulin Ratio 1.6 (1.2-2.2); Alkaline Phosphatase 114 U/L (46-116); Anion Gap 8 (7-16); Aspartate Amino Transferase 24 U/L (0-34); BUN/Creatinine Ratio 9 Ratio (12-20); Bilirubin,Total 0.4 mg/dL (0.3-1.2); Blood Urea Nitrogen 6 mg/dL (9-23); Calcium 7.9 mg/dL (8.3-10.6); Calcium (Corrected) 8.6 mg/dL (8.5-10.1); Carbon Dioxide 24.3 mMol/L (20.0-31.0); Chloride 110 mMol/L (98-107); Creatinine (Component) 0.7 mg/dL (0.6-1.3); Estimated Creatinine Clearance 124.1 mL/min (>60); Globulin 2.0 gm/dL (2.3-3.5); Glucose 99 mg/dL (74-106); Magnesium 1.4 mg/dL (1.6-2.6); Osmolality,Calculated 280 (275-295); Phosphorous 2.5 mg/dL (2.4-5.1); Potassium 3.8 mMol/L (3.4-5.1); Sodium 142 mMol/L (136-145); Total Protein 5.1 gm/dL (5.7-8.2); eGFR > 60 See Note
[2024-11-07] MEDS: Magnesium Sulfate 4 GM Ivpb 4 GM/50 ML BAG IV (07:37)
[2024-11-07] MEDS: THIAMINE 100 MG TABLET PO (08:50)
[2024-11-07] MEDS: PANTOPRAZOLE 40 MG TABLET PO (08:50)
[2024-11-07] MEDS: MULTIVITAMINS TABLET 1 TAB PO (08:50)
[2024-11-07] MEDS: FINASTERIDE 5 MG TABLET PO (08:50)
[2024-11-07] MEDS: FOLIC ACID 1 MG TABLET PO (08:50)
[2024-11-07] MEDS: HEPARIN SOD INJ 5000 UNIT/ML VIAL SC ×2 (08:54→22:11)
--- NOTE | 2024-11-07 09:11 | PC.NURSE ---
Pt. was on a 4 point restraint at shift change leg restraints removed at 0650 per MD and wrist restraints removed at 0805 per MD. Patient is tolerating well with no agitation or aggression noted at this time.
--- NOTE | 2024-11-07 09:14 | EKG_ITS ---
[facility] Test Date: 2024-11-07 Pat Name: RANDI MOHAN [facility] Extrusion Technician: MANUELITO : 1955 Requested By: Nghia De Order Number: [id number] Reading MD: Nghia De Measurements Intervals Lorenzo Rate: 80 P: 14 MO: 108 QRS: 23 QRSD: 102 T: 65 QT: 381 QTc: 440 Interpretive Statements SINUS RHYTHM WITH SHORT MO INTERVAL NONSPECIFIC T-WAVE ABNORMALITY Compared to ECG 11/06/2024 08:11:58 Short MO interval now present T-wave abnormality now present Sinus bradycardia no longer present Prolonged QT interval no longer present /store/S0/[id number]/[id number].pdf
[2024-11-07] MEDS: ZIPRASIDONE 20 MG CAPSULE PO ×2 (09:54→22:11)
--- NOTE | 2024-11-07 10:24 | ESPR_ITS ---
<Statement entered by Nghia De MD - 11/07/24 14:24> Patient was seen and examined at bedside. I agree on the assessment and plan on this note as documented by resident Spencer Gramajo PGY1. Patient's mentation improved remarkably overnight, overnight patient did require pushes of diazepam for anxiety, for high blood pressure patient was restarted on his home medication of lisinopril, patient alert and oriented x 3 engaging in conversation seems to be at baseline, we discontinued the 4 point restraints today. Patient has been off of Precedex, continue Librium at a lower dose of 50 mg, down titrate to Librium 25 mg in a.m. if patient does not have symptoms of acute withdrawal. We will continue with ziprasidone p.o. 20 mg twice daily which can be uptitrated as patient tolerates, continue Depakote. Discontinued Abilify and buspirone, patient to follow-up with psychiatry outpatient, per ex- patient has been rescheduled for outpatient appointment. Transaminitis improving, ASHLEY has resolved. For underlying suspected syphilis, confirmatory test is pending, we reached out to send out department, results will likely be back in a.m. Infectious diseases consulted and following. Otherwise patient is deemed stable to be downgraded back to med/tele, signed out to hospitalist team C. Follow-up on echocardiogram, confirmatory syphilis panel and down titrate Librium. Case discussed with attending Dr. Jordan De MD PGY-2 Documentation for date of: 11/07/24 Subjective Subjective Interval history: HPI: 68-year-old male with a reported past medical history of bipolar 2, depression, OCD, PTSD, anxiety, alcohol use disorder versus one episode seizure, and questionable previous MA status post stent placement, who presented to the ED on 11/03/2024 BIBA due to alcohol intoxication. He was found to be hypotensive at the time of arrival and had no acute complaints. Per the patient he arrived to the hospital from his girlfriend's house. He was admitted due to hypotension and for alcohol withdrawal. Patient was upgraded to the ICU due to increased supervision necessary for treatment of alcohol withdrawal. Per the patient's ex-, the patient has been binge drinking for the past 2 weeks. Also per the patient's , the patient has been depressed recently and has an appointment with a psychiatrist on 11/07/2024. The patient is a poor historian and is A&O X1. Per the patient patient arrived at his ex-'s place of residence where he began to binge drink. He reported feeling alcohol intoxication and dizziness, at which time he asked his ex- to call an ambulance. Per the ex-, patient was vomiting several times after binge drinking and his oral intake had decreased. ED Course: The patient was hypotensive on arrival to the ED with a pressure of 65/39 pulse 63, respiratory rate 17, temp 98.6, O2 sat 90 on room air. Was resuscitated with 3 L of IV normal saline and his blood pressure recovered to 94/58. Lactic acid was 2.1 and he had a normal anion gap. Blood alcohol level was 204. Head CT was negative. Patient was admitted in the hospital for further treatment and evaluation with his volume depletion and alcohol abuse and hypotension. Interval history: 11/05/2024: The patient was extremely agitated and a rapid response and a code richard was called on the floor. Patient was given diazepam and Librium by the primary team, however he continued to be agitated and was transferred to the ICU. 11/06/2024: Patient was on max dose of Precedex overnight. He became severely agitated in the morning and was given 1 dose of 5 mg diazepam, will continue to wean Precedex and will start Geodon IM. Patient became extremely agitated, combative, and tried to bite and kick staff shortly after arrival to ICU on 11/05/2024. Besides being slightly disoriented to place, he had normal mentation on arrival to ICU. He has not had normal mentation since ICU admission. Since ICU admission he has had 2 total episodes of severe agitation with the aforementioned symptoms and actions, the most recent being the morning of 11/06/2024. During the agitation episodes the patient responded well to Valium, as he falls asleep while maintaining adequate respiratory drive. Will continue as needed Valium. CIWA score 22. Blood pressure was soft, discontinued home lisinopril. Patient was slightly hypomagnesemic, received 4 of magnesium. Started subcutaneous heparin. Patient was positive for syphilis serology, started penicillin 11/06/2024. ID consulted. 11/07/2024: Patient is off Precedex. Able to take oral medications now and much more cooperative. CIWA 3. Received 1 mg diazepam in the entry level chemist hours. Will start Librium taper today, continue ziprasidone. Resumed home lisinopril. Will follow-up with [facility] regarding syphilis confirmatory results, continue penicillin treatment. Downgrade. Exam Vital Signs Temp Pulse Resp BP Pulse Ox O2 Del Method O2 Flow Rate 97.2 F 84 23 H 155/107 H 97 Room Air 2 11/07/24 08:00 11/07/24 10:01 11/07/24 10:01 11/07/24 10:01 11/07/24 10:01 11/07/24 08:00 11/06/24 16:00 Narrative Exam General: No acute distress, talkative, cooperative. Neurologic: GCS 15. No gross neurological deficit, and patient able to move all 4 extremities. HEENT: Normocephalic, atraumatic, mucous membranes moist. Pupils reactive to light. Heart: Grade 3 systolic ejection murmur heard at the right and left sternal borders and mid axillary lines bilaterally. Bradycardic. Lungs: Clear to auscultation bilaterally with no wheezing or crackles. Abdomen: Midline surgical scar. Soft, nondistended, nontender, positive bowel sounds. No guarding or rebound tenderness. Extremities: Trace pitting edema lower extremities bilaterally below the knee. 2+ radial and dorsalis pedis pulses bilaterally. Skin: Warm. Dry. No rash or ecchymoses. Objective Labs 11/08/24 05:49 11/08/24 05:49 Labs: Laboratory Results - last 24 hr 11/06/24 11/07/24 08:10 04:39 WBC 5.3 RBC 3.55 L Hgb 11.9 L Hct 35.3 L MCV 99 MCH 33.5 MCHC 33.7 RDW Std Deviation 48.9 H Plt Count 122 L Neut % (Auto) 57 Lymph % (Auto) 24 [place] % (Auto) 8 Eos % (Auto) 10 Baso % (Auto) 1 Neut # (Auto) 3.0 Lymph # (Auto) 1.3 [place] # (Auto) 0.4 Eos # (Auto) 0.5 Baso # (Auto) 0.0 Immature Gran # (Auto) 0.01 H Absolute Nucleated RBC 0.00 Immature Gran % 0 Nucleated RBC % 0 Sodium 142 Potassium 3.8 D Chloride 110 H Carbon Dioxide 24.3 Anion Gap 8 BUN 6 L Creatinine 0.7 Estim Creat Clear Calc 124.1 eGFR > 60 BUN/Creatinine Ratio 9 L Glucose 99 Calculated Osmolality 280 Calcium 7.9 L Corrected Calcium 8.6 Phosphorus 2.5 Magnesium 1.4 L Total Bilirubin 0.4 AST 24 ALT 15 Alkaline Phosphatase 114 Total Protein 5.1 L Albumin 3.1 L Globulin 2.0 L Albumin/Globulin Ratio 1.6 Vitamin B12 1656 H Folate > 24.00 Quality Measures Quality Measures none Advance care planning discussed with:: significant other Assessment & Plan Assessment Current Active Medications: Generic Name Dose Route Start Last Admin Trade Name Freq PRN Reason Stop Dose Admin Acetaminophen 650 mg 11/04/24 00:42 11/07/24 03:53 Acetaminophen 325 Mg Tablet PO 12/04/24 00:41 650 mg Q6H PRN Administration PAIN SCALE 1-3 (mild Aspirin 81 mg 11/08/24 09:00 Aspirin Ec 81 Mg Tabec PO 12/08/24 08:59 QDAY ALYSIA Atorvastatin Calcium 80 mg 11/07/24 21:00 Atorvastatin Calcium 20 Mg Tablet PO 12/07/24 20:59 HS ALYSIA Chlordiazepoxide HCl 50 mg 11/07/24 14:00 Chlordiazepoxide Hcl 25 Mg Capsule PO 11/12/24 13:59 Q8HR ALYSIA Divalproex Sodium 500 mg 11/04/24 21:00 11/06/24 21:08 Divalproex Sod Ec 125 Mg Tabec PO 12/04/24 20:59 Not Given HS ALYSIA Finasteride 5 mg 11/04/24 09:00 11/07/24 08:50 Finasteride 5 Mg Tablet PO 12/04/24 08:59 5 mg QDAY ALYSIA Administration Folic Acid 1 mg 11/04/24 09:00 11/07/24 08:50 Folic Acid 1 Mg Tablet PO 12/04/24 08:59 1 mg QDAY ALYSIA Administration Heparin Sodium (Porcine) 5,000 unit 11/04/24 09:00 11/07/24 08:54 Heparin Sod Inj 5000 Unit/Ml Vial SC 11/18/24 08:59 5,000 unit Q12HR ALYSIA Administration Penicillin G Potassium 4 mmu/ 54 mls @ 108 mls/hr 11/06/24 18:00 11/07/24 09:55 Sterile Water 4 ml/ Sodium IV 11/13/24 17:59 108 mls/hr Chloride Q4HR ALYSIA Administration Magnesium Sulfate 4 gm in 50 mls @ 12.5 mls/hr 11/07/24 07:15 11/07/24 07:37 Magnesium Sulfate Ivpb IV 11/07/24 11:14 12.5 mls/hr X1 ONE Administration Lisinopril 10 mg 11/04/24 16:15 11/07/24 04:02 Lisinopril 2.5 Mg Tablet PO 12/04/24 16:14 10 mg QDAY ALYSIA Administration Multivitamins 1 tab 11/07/24 09:00 11/07/24 08:50 Multivitamins Tablet PO 12/07/24 08:59 1 tab QDAY ALYSIA Administration Ondansetron HCl 4 mg 11/04/24 00:42 11/04/24 22:29 Ondansetron Inj 2 Mg/Ml Inj 2 Ml IVP 12/04/24 00:41 4 mg Q6H PRN Administration NAUSEA OR VOMITING Protocol Pantoprazole Sodium 40 mg 11/04/24 15:45 11/07/24 08:50 Pantoprazole 40 Mg Tablet PO 12/04/24 15:44 40 mg QDAY ALYSIA Administration Sennosides 1 tab 11/04/24 00:42 Senna Tablet PO 12/04/24 00:41 QDAY PRN constipation Protocol Thiamine HCl 100 mg 11/07/24 09:00 11/07/24 08:50 Thiamine 100 Mg Tablet PO 12/07/24 08:59 100 mg QDAY ALYSIA Administration Ziprasidone 20 mg 11/07/24 09:15 11/07/24 09:54 Ziprasidone 20 Mg Capsule PO 12/07/24 09:14 20 mg BID ALYSIA Administration Plan Summary 68-year-old male with a past medical history of bipolar 2, depression, OCD, PTSD, anxiety, alcohol use disorder versus seizure disorder, questionable previous MA status post stent placement, admitted to the ICU due to alcohol withdrawal. Patient is being treated with multiple benzodiazepines. Admitted to ICU for severe alcohol withdrawal. Neuro #Acute encephalopathy #Alcohol use disorder #Alcohol withdrawal #Possible psychosis versus auditory hallucinations versus visual hallucinations - Patient has episodes where he is confused, disoriented, and severely agitated, kicking, attempting to bite, and throwing items at staff - Patient appears to be having auditory hallucinations, yelling for people who are not there - Likely combination of alcohol withdrawal, bipolar 2, PTSD, possible psychosis versus hypomanic episode, and anxiety - Blood alcohol level was 204 on arrival - CIWA 31 on ICU admission - CIWA 22 morning of 11/06/2024 - CIWA 3 morning of 11/07/2024 -Patient has not had an episode of severe agitation for over 24 hours, cooperative and taking oral medications now Plan: - Patient's agitation was subdued with 10 mg diazepam, 190 mg phenobarbital x 2, and Precedex drip started upon arrival to ICU - DC valium - DC CIWA checks - DC 4 point restraints - Librium Taper plan: 75 mg Q 8 hours x 3, followed by 50 mg every 8 hours x 3, followed by 75 mg every 8 hours x 3 - Continue seizure precautions - office services assistant consult for crisis eval #History of bipolar 2 #History of depression #History of OCD #History of PTSD #History of anxiety - Patient sees a psychiatrist outpatient for these conditions - Patient mentions that he takes lithium, Abilify, Seroquel, and prozac Plan: - Continue Geodon 20 mg p.o. twice daily - Continue valproic acid - DC home Abilify, buspirone - Follow-up outpatient psych Cardiac #Hypertension #Aortic murmur #Hypotension (Resolved) #Questionable history of previous MA status post stent placement - Blood pressure 65/39 on arrival - Improved to 94/50 3:08 liters of fluid in the ED - Likely due to acute alcohol intoxication at time of hospital admission - 143/97 on ICU transfer, expected to decrease with benzodiazepine treatment - Patient takes lisinopril at home - Blood pressure was slightly soft morning of 11/06/2024 at 112/71, discontinued home lisinopril and blood pressure improved to 120/86 - Per patient he does not see a tank car mechanic - Grade 3 systolic ejection murmur on physical Plan: - Restarted p.o. home lisinopril 11/07/2024 - Pending echo read Pulmonary #Questionable history of asthma - Patient endorses a history of asthma Plan: - Continue to monitor end-tidal CO2, respiratory rate, and respiratory drive given the treatment with benzodiazepines in the setting of alcohol withdrawal GI #Transaminitis (resolved) #Hyperammonemia #Hypoalbuminemia #Cirrhosis - Transaminitis during hospital stay likely due to alcohol intoxication at time of admission, resolved - Ammonia slightly elevated at 34, also likely alcohol related - Hypoalbuminemia most likely secondary to cirrhosis and history of alcohol use - Patient takes atorvastatin at home - Patient's acute encephalopathy, agitation, and apparent hallucinations are likely due to alcohol withdrawal and psychiatric issues, less likely due to hepatic encephalopathy Plan: - Resume home atorvastatin 11/07/2024 - Social service consult for crisis eval regarding alcohol abuse - Consider lactulose if alcoholic withdrawal treatment is insufficient for resolution of patient's agitation if in the presence of supporting evidence for the clinical diagnosis of hepatic encephalopathy - Start regular diet Renal #ASHLEY (Resolved) #Hyperkalemia (Resolved) #Hypomagnesemia - Patient's creatinine lexi to 1.4 since admission, has since resolved to 0.7 - BUN stable at 6 - Potassium lexi to 5.8 during admission, has since resolved 3.8 - Magnesium 1.4 - Consider initiall electrolyte abnormalities due to alcohol intoxication versus malnutrition versus dehydration Plan: - Monitor with daily labs - 4 of magnesium Infectious Disease #Syphilis serology positive, pending confirmation - Syphilis serology positive 11/06/2024 - Per the patient's PCP, the patient has never been treated for syphilis in the past - Patient mentioned that he had syphilis during an episode of severe agitation on 11/05/2024, it is unclear how the patient supposedly knew that he had syphilis since he has never been treated for syphilis in the past according to his PCP Plan: - Penicillin treatment started 11/06/2024, treatment dose for neurosyphilis - ID consulted - Follow-up [facility] for confirmatory test Endocrine #Type 2 diabetes melitis ruled out - Patient takes no known home medications for diabetes - A1c normal 5.2 - Glucose stable Plan: - Monitor blood glucose with daily labs Heme #Normocytic normochromic anemia #Thrombocytopenia #Iron deficiency anemia - Hemoglobin 11.7, hematocrit 34.7, MCV 97, platelets 128 on 11/05/2024 upon admission to the ICU - Consider anemia due to alcohol use versus nutritional deficiency versus cirrhosis - Consider dehydration in the presence of thrombocytopenia - Iron 40mcg/dl on 11/04/2024, consider in the presence of nutritional deficiency versus alcohol abuse Plan: - Monitor with daily CBC labs - Continue and switch thiamine and folic acid supplementation to p.o. - DC B12 supplementation MSK -No pertinent problems. Skin -No pertinent problems. Urogenital #Questionable history of BPH - Patient has a history of BPH per ED physician review of history - Patient denied any issue with voiding or any prostate issue to the ICU team - Patient is prescribed tamsulosin outpatient Plan: - Resume finasteride for now Lines/Access Peripheral IVs Nutrition Regular diet Sedation/Analgesia Off sedation DVT Prophylaxis Heparin subcu GI Prophylaxis Protonix, senna Code Status Full code Disposition: Patient is a lot more cooperative and no longer agitated. Will downgrade to floor and continue ziprasidone taper. Continue to monitor for signs of alcohol withdrawal. Patient was seen and discussed with my attending physician Dr. Faustino Ortega MD and my senior resident Dr. Nghia De MD PGY-2. Spencer Gramajo DO PGY-1. Attending Provider Attestation/Addendum Patient seen and examined with the above resident, Spencer Gramajo DO. I agree with the findings, assessment, and plan of care as document except for any differences below. Patient with continued significant improvement with stabilization of his neurological/psychiatric status. Patient will remain on Geodon. Slow Librium taper off over the coming days. Patient no longer requiring diazepam. Patient will be resumed on valproate and we will hold his BuSpar and Abilify. Geodon will be adequate for similar receptor coverage and has been shown beneficial in the patient's acute phase. Long-term management will ultimately be required by outpatient psychiatry when he is medically cleared to leave the hospital. Also found to have syphilis on this admission with complete 10-day course at the discretion of infectious disease with follow- up to be done by [facility]. Patient tolerating diet this morning. Patient's ex- was at bedside and was updated by medicine residents under my supervision. Patient is stable for transfer back to medicine trinh for ongoing management/optimization prior to discharge in coming days. Total critical care time: I personally spent 35 minutes for review of physiologic parameters, directing plan of care, coordination of care with other specialties, and counseling patient and his ex- at bedside. This is exclusive of time spent teaching on staff or performing any separate billable procedures. Patient remains at significant risk for further morbidity and mortality warranting close monitoring and care when available in the ICU. Patient required critical care services for alcohol withdrawal syndrome/delirium tremens, acute psychosis/metabolic encephalopathy, bipolar disorder, and syphilis.
--- NOTE | 2024-11-07 14:00 | ESPR_ITS ---
<Statement entered by Agnes Corona MD - 11/07/24 16:07> I have reviewed the note and agree with the resident's assessment & plan with exceptions as below. I have personally reviewed labs, imaging, home meds/prior records, examined the patient, formulated and discussed management plan with the IM team. ICU downgrade today for alcohol withdrawal. Will continue with CIWA protocol, there was concern for neurosyphilis, ICU continue with penicillin treatment. Will follow-up for additional tests. Repeat hematology and chemistry in the a.m. Agnes Corona, PGY-2 Internal Medicine Documentation for date of: 11/07/24 Subjective Subjective Interval history: Patient has been downgraded from ICU, seen at bedside alongside ex-. Patient denies any chest pain, shortness of breath, abdominal pain, nausea, vomiting, dizziness. Patient mentions having ongoing tremors particularly of the right arm but has significantly improved since admission. No acute concerns at present. Exam Vital Signs Temp Pulse Resp BP Pulse Ox O2 Del Method O2 Flow Rate 97.2 F 97 19 155/107 H 96 Room Air 2 11/07/24 08:00 11/07/24 12:03 11/07/24 12:03 11/07/24 10:01 11/07/24 12:03 11/07/24 08:00 11/06/24 16:00 Narrative Exam General: No acute distress, talkative, cooperative. Neurologic: GCS 15. No gross neurological deficit, and patient able to move all 4 extremities. HEENT: Normocephalic, atraumatic, mucous membranes moist. Pupils reactive to light. Cardio: S1+S2. RRR. Grade 3 systolic ejection murmur heard at the right and left sternal borders and mid axillary lines bilaterally. Lungs: Clear to auscultation bilaterally with no wheezing or crackles. Abdomen: Midline surgical scar. Soft, nondistended, nontender, positive bowel sounds. No guarding or rebound tenderness. Extremities: Trace pitting edema lower extremities bilaterally below the knee. 2+ radial and dorsalis pedis pulses bilaterally. Skin: Warm. Dry. No rash or ecchymoses. Objective Labs 11/07/24 04:39 11/07/24 04:39 Labs: Laboratory Results - last 24 hr 11/07/24 04:39 WBC 5.3 RBC 3.55 L Hgb 11.9 L Hct 35.3 L MCV 99 MCH 33.5 MCHC 33.7 RDW Std Deviation 48.9 H Plt Count 122 L Neut % (Auto) 57 Lymph % (Auto) 24 [place] % (Auto) 8 Eos % (Auto) 10 Baso % (Auto) 1 Neut # (Auto) 3.0 Lymph # (Auto) 1.3 [place] # (Auto) 0.4 Eos # (Auto) 0.5 Baso # (Auto) 0.0 Immature Gran # (Auto) 0.01 H Absolute Nucleated RBC 0.00 Immature Gran % 0 Nucleated RBC % 0 Sodium 142 Potassium 3.8 D Chloride 110 H Carbon Dioxide 24.3 Anion Gap 8 BUN 6 L Creatinine 0.7 Estim Creat Clear Calc 124.1 eGFR > 60 BUN/Creatinine Ratio 9 L Glucose 99 Calculated Osmolality 280 Calcium 7.9 L Corrected Calcium 8.6 Phosphorus 2.5 Magnesium 1.4 L Total Bilirubin 0.4 AST 24 ALT 15 Alkaline Phosphatase 114 Total Protein 5.1 L Albumin 3.1 L Globulin 2.0 L Albumin/Globulin Ratio 1.6 Quality Measures Quality Measures none Advance care planning discussed with:: patient Assessment & Plan Assessment Current Active Medications: Generic Name Dose Route Start Last Admin Trade Name Freq PRN Reason Stop Dose Admin Acetaminophen 650 mg 11/04/24 00:42 11/07/24 03:53 Acetaminophen 325 Mg Tablet PO 12/04/24 00:41 650 mg Q6H PRN Administration PAIN SCALE 1-3 (mild Aspirin 81 mg 11/08/24 09:00 Aspirin Ec 81 Mg Tabec PO 12/08/24 08:59 QDAY ALYSIA Atorvastatin Calcium 80 mg 11/07/24 21:00 Atorvastatin Calcium 20 Mg Tablet PO 12/07/24 20:59 HS ALYSIA Chlordiazepoxide HCl 50 mg 11/07/24 14:00 11/07/24 13:15 Chlordiazepoxide Hcl 25 Mg Capsule PO 11/12/24 13:59 50 mg Q8HR ALYSIA Administration Divalproex Sodium 500 mg 11/04/24 21:00 11/06/24 21:08 Divalproex Sod Ec 125 Mg Tabec PO 12/04/24 20:59 Not Given HS ALYSIA Finasteride 5 mg 11/04/24 09:00 11/07/24 08:50 Finasteride 5 Mg Tablet PO 12/04/24 08:59 5 mg QDAY ALYSIA Administration Folic Acid 1 mg 11/04/24 09:00 11/07/24 08:50 Folic Acid 1 Mg Tablet PO 12/04/24 08:59 1 mg QDAY ALYSIA Administration Heparin Sodium (Porcine) 5,000 unit 11/04/24 09:00 11/07/24 08:54 Heparin Sod Inj 5000 Unit/Ml Vial SC 11/18/24 08:59 5,000 unit Q12HR ALYSIA Administration Penicillin G Potassium 4 mmu/ 54 mls @ 108 mls/hr 11/06/24 18:00 11/07/24 13:15 Sterile Water 4 ml/ Sodium IV 11/13/24 17:59 108 mls/hr Chloride Q4HR ALYSIA Administration Lisinopril 10 mg 11/04/24 16:15 11/07/24 04:02 Lisinopril 2.5 Mg Tablet PO 12/04/24 16:14 10 mg QDAY ALYSIA Administration Multivitamins 1 tab 11/07/24 09:00 11/07/24 08:50 Multivitamins Tablet PO 12/07/24 08:59 1 tab QDAY ALYSIA Administration Ondansetron HCl 4 mg 11/04/24 00:42 11/04/24 22:29 Ondansetron Inj 2 Mg/Ml Inj 2 Ml IVP 12/04/24 00:41 4 mg Q6H PRN Administration NAUSEA OR VOMITING Protocol Pantoprazole Sodium 40 mg 11/04/24 15:45 11/07/24 08:50 Pantoprazole 40 Mg Tablet PO 12/04/24 15:44 40 mg QDAY ALYSIA Administration Sennosides 1 tab 11/04/24 00:42 Senna Tablet PO 12/04/24 00:41 QDAY PRN constipation Protocol Thiamine HCl 100 mg 11/07/24 09:00 11/07/24 08:50 Thiamine 100 Mg Tablet PO 12/07/24 08:59 100 mg QDAY ALYSIA Administration Ziprasidone 20 mg 11/07/24 09:15 11/07/24 09:54 Ziprasidone 20 Mg Capsule PO 12/07/24 09:14 20 mg BID ALYSIA Administration Plan Assessment: 68-year-old male with a past medical history of bipolar 2, depression, OCD, PTSD, anxiety, alcohol use disorder versus seizure disorder, previous PA status post stent placement, admitted to the ICU due to SEVERE alcohol withdrawal and was treated with multiple benzodiazepines. Patient has since been downgraded to medical floor for management of ongoing issues. #Acute encephalopathy #Alcohol use disorder #Alcohol withdrawal #Possible psychosis versus auditory hallucinations versus visual hallucinations CIWA 3 morning of 11/07/2024 Plan: - CIWA discontinued by ICU as no longer concerned about withdrawal at this stage ?Thiamine 100 mg p.o. daily - Librium Taper plan: 75 mg Q 8 hours x 3, followed by 50 mg every 8 hours x 3, followed by 75 mg every 8 hours x 3 - Continue seizure precautions - hospitality services manager consult for crisis eval #Syphilis serology positive, pending confirmation Syphilis serology positive 11/06/2024 Per the patient's PCP, the patient has never been treated for syphilis in the past Patient mentioned that he had syphilis during an episode of severe agitation on 11/05/2024, it is unclear how the patient supposedly knew that he had syphilis since he has never been treated for syphilis in the past according to his PCP Plan: - Penicillin treatment started 11/06/2024, treatment dose for neurosyphilis - ID consulted - Follow-up [facility] for confirmatory test #Hx of Hypertension #Aortic murmur #History of PA Per patient 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 home lisinopril 11/07/2024 - Pending echo read ?Restarted aspirin 81 mg daily #Transaminitis (resolved) #Hyperammonemia #Hypoalbuminemia #Cirrhosis Transaminitis during hospital stay likely due to alcohol intoxication at time of admission, resolved Ammonia slightly elevated at 34, also likely alcohol related Hypoalbuminemia most likely secondary to cirrhosis and history of alcohol use Plan: - Resume home atorvastatin 11/07/2024 - Social service consult for crisis eval regarding alcohol abuse - Consider lactulose if alcoholic withdrawal treatment is insufficient for resolution of patient's agitation if in the presence of supporting evidence for the clinical diagnosis of hepatic encephalopathy #Hx of BPH Patient on finasteride 5 mg p.o. daily ED provider ordered Matthews Plan: ?DC Matthews and do bladder training ?Restarted home medication #Hx of Bipolar disorder 2 #Hx of Depression #History of OCD #History of PTSD #History of anxiety - Patient sees a psychiatrist outpatient for these conditions - Patient mentions that he takes lithium, Abilify, Seroquel, and prozac Plan: - Continue Geodon 20 mg p.o. twice daily - Continue valproic acid - DC home Abilify, buspirone - Follow-up outpatient psych Health Maintenance: Diet: Regular GI prophylaxis: protonix 40 daily DVT prophylaxis: Heparin subcut 5000 units twice daily Code: DNR Case discussed with my attending Dr. Sanz, and senior resident, Dr. Cj Ruiz MD PGY-1 Attending Provider Attestation/Addendum Patient was downgraded from the ICU for he was treated for alcohol withdrawal with high CIWA score. Patient improved. Continue to monitor. Pending physical therapy. Patient will need nursing home social worker evaluation.
--- NOTE | 2024-11-07 18:17 | PC.NURSE ---
notified regarding bp 168/111. said keep eye on it. no new orders needed for right now
--- NOTE | 2024-11-07 18:24 | PC.SS ---
Update: Patient downgraded to Med/Surg from ICU today.
[2024-11-07] MEDS: ATORVASTATIN CALCIUM 20 MG TABLET 80 MG PO (22:06)
[2024-11-07] MEDS: DIVALPROEX SOD EC 125 MG TABEC 500 MG PO (22:11)
[2024-11-08] VITALS (9 sets, daily range): BP systolic 115–159; BP diastolic 69–112; PULSE 69–83; RESP 16–18; TEMP 35.9–36.2; O2SAT 91–96
[2024-11-08] MEDS: PENICILLIN POT IV ×4 (02:28→13:46)
[2024-11-08] MEDS: SODIUM CHLORIDE IV ×4 (02:28→13:46)
[2024-11-08] MEDS: STERILE WATER IV ×4 (02:28→13:46)
[2024-11-08 06:21] LABS: Basophils # (Auto) 0.0 Thou/mm3 (0.0-0.2); Basophils % (Auto) 1 % (0-2.5); Eosinophils # (Auto) 0.5 Thou/mm3 (0.0-0.5); Eosinophils % (Auto) 10 % (0-10); Hematocrit 35.4 % (41.0-53.0); Hemoglobin 11.9 g/dL (13.5-16.0); Immature Granulocytes Auto 0.01 Thou/mm3 (0.00-0.00); Lymphocytes # (Auto) 1.6 Thou/mm3 (1.0-4.8); Lymphocytes % (Auto) 32 % (10-50); Mean Corpuscular HGB Conc 33.6 g/dl (31.0-37.0); Mean Corpuscular Hemoglobin 33.4 pg (25.0-35.0); Mean Corpuscular Volume 99 fL (80-100); Monocytes # (Auto) 0.5 Thou/mm3 (0.0-0.8); Monocytes % (Auto) 11 % (0-12); Neutrophils # (Auto) 2.3 Thou/mm3 (1.8-7.7); Neutrophils % (Auto) 47 % (37-80); Nucleated Red Blood Cell # 0.00 Thou/mm3 (0.00-0.00); Nucleated Red Blood Cell % 0 /100 WBC (0); Platelet Count 142 Thou/mm3 (140-440); RDW Standard Deviation 48.1 fL (35.1-43.9); Red Blood Count 3.56 Miln/mm3 (4.50-5.90); White Blood Count 4.9 Thou/mm3 (3.8-10.6)
[2024-11-08 07:06] LABS: Alanine Aminotransferase 19 U/L (10-49); Albumin, Serum 3.0 gm/dL (3.4-4.8); Albumin/Globulin Ratio 1.5 (1.2-2.2); Alkaline Phosphatase 112 U/L (46-116); Anion Gap 7 (7-16); Aspartate Amino Transferase 24 U/L (0-34); BUN/Creatinine Ratio 10 Ratio (12-20); Bilirubin,Total 0.3 mg/dL (0.3-1.2); Blood Urea Nitrogen 9 mg/dL (9-23); Calcium 8.3 mg/dL (8.3-10.6); Calcium (Corrected) 9.1 mg/dL (8.5-10.1); Carbon Dioxide 26.5 mMol/L (20.0-31.0); Chloride 111 mMol/L (98-107); Creatinine (Component) 0.9 mg/dL (0.6-1.3); Estimated Creatinine Clearance 96.5 mL/min (>60); Globulin 2.0 gm/dL (2.3-3.5); Glucose 92 mg/dL (74-106); Magnesium 1.9 mg/dL (1.6-2.6); Osmolality,Calculated 285 (275-295); Phosphorous 4.1 mg/dL (2.4-5.1); Potassium 4.1 mMol/L (3.4-5.1); Sodium 144 mMol/L (136-145); Total Protein 5.0 gm/dL (5.7-8.2); eGFR > 60 See Note
[2024-11-08] MEDS: FINASTERIDE 5 MG TABLET PO (08:17)
[2024-11-08] MEDS: PANTOPRAZOLE 40 MG TABLET PO (08:18)
[2024-11-08] MEDS: MULTIVITAMINS TABLET 1 TAB PO (08:18)
[2024-11-08] MEDS: HEPARIN SOD INJ 5000 UNIT/ML VIAL SC ×2 (08:18→20:07)
[2024-11-08] MEDS: ZIPRASIDONE 20 MG CAPSULE PO ×2 (08:18→20:06)
[2024-11-08] MEDS: FOLIC ACID 1 MG TABLET PO (08:18)
[2024-11-08] MEDS: THIAMINE 100 MG TABLET PO (08:18)
[2024-11-08] MEDS: ASPIRIN EC 81 MG TABEC PO (08:19)
--- NOTE | 2024-11-08 10:08 | PD.IDPROG ---
Subjective Subjective Interval history: no confirmatory test at [facility] yet. I called. they said it would be done by end of business today. no titer. no noted risk factors on review Exam Vital Signs Temp Pulse Resp BP Pulse Ox O2 Del Method O2 Flow Rate 97.2 F 74 18 137/88 H 96 Room Air 2 11/08/24 07:41 11/08/24 08:18 11/08/24 07:41 11/08/24 08:18 11/08/24 07:41 11/08/24 07:41 11/06/24 16:00 Narrative Exam still sl slow but denies any sexual contact for some time. Objective - Internal Medicine Labs 11/08/24 05:49 11/08/24 05:49 Labs: Laboratory Results - last 24 hr 11/08/24 05:49 WBC 4.9 RBC 3.56 L Hgb 11.9 L Hct 35.4 L MCV 99 MCH 33.4 MCHC 33.6 RDW Std Deviation 48.1 H Plt Count 142 Neut % (Auto) 47 Lymph % (Auto) 32 [place] % (Auto) 11 Eos % (Auto) 10 Baso % (Auto) 1 Neut # (Auto) 2.3 Lymph # (Auto) 1.6 [place] # (Auto) 0.5 Eos # (Auto) 0.5 Baso # (Auto) 0.0 Immature Gran # (Auto) 0.01 H Absolute Nucleated RBC 0.00 Immature Gran % 0 Nucleated RBC % 0 Sodium 144 Potassium 4.1 Chloride 111 H Carbon Dioxide 26.5 Anion Gap 7 BUN 9 Creatinine 0.9 Estim Creat Clear Calc 96.5 eGFR > 60 BUN/Creatinine Ratio 10 L Glucose 92 Calculated Osmolality 285 Calcium 8.3 Corrected Calcium 9.1 Phosphorus 4.1 Magnesium 1.9 Total Bilirubin 0.3 AST 24 ALT 19 Alkaline Phosphatase 112 Total Protein 5.0 L Albumin 3.0 L Globulin 2.0 L Albumin/Globulin Ratio 1.5 Assessment & Plan A&P Narrative possible syphilis, pos screen locally, no noted risk factors etoh w/d hld by meds htn by meds if syphilis is not confirmed at health dept then ok to stop iv pen that result is delayed at the health dept for reasons that are not clear to me current rx ok for now. he is improved, so this is likely etoh related overall, so if rpr low or neg, then value of lp is low. if test neg, then possibly home tomorrow. Time Spent With Patient Time: Total time spent is greater than 50% in coordination of care (as documented) at patient's floor/unit and/or counseling patient:
--- NOTE | 2024-11-08 15:56 | PC.SS ---
Follow up note: SS attempted to see patient this afternoon to discuss d/c plans. However, nursing staff had just called physician team because patient was hallucinating and hearing things. Patient has a 1:1. Notes indicate he will need a crisis eval upon discharge. Ex-, Leidy, is the alt medical decision maker and point of contact. Nursing staff states ex is here often. SS left her a message as well. Patient is not ready medically for discharge. rounding note: Pending syhillis results. Possible LP.
--- NOTE | 2024-11-08 16:18 | ESPR_ITS ---
Subjective Subjective Interval history: got a call from [facility] at just after 4 pm. rpr is barely pos but fta is pos Exam Vital Signs Temp Pulse Resp BP Pulse Ox O2 Del Method O2 Flow Rate 97.2 F 83 17 134/79 H 93 L Room Air 2 11/08/24 15:46 11/08/24 15:46 11/08/24 15:46 11/08/24 15:46 11/08/24 15:46 11/08/24 15:46 11/06/24 16:00 Narrative Exam see earlier note for exam Objective - Internal Medicine Labs 11/08/24 05:49 11/08/24 05:49 Labs: Laboratory Results - last 24 hr 11/08/24 05:49 WBC 4.9 RBC 3.56 L Hgb 11.9 L Hct 35.4 L MCV 99 MCH 33.4 MCHC 33.6 RDW Std Deviation 48.1 H Plt Count 142 Neut % (Auto) 47 Lymph % (Auto) 32 [place] % (Auto) 11 Eos % (Auto) 10 Baso % (Auto) 1 Neut # (Auto) 2.3 Lymph # (Auto) 1.6 [place] # (Auto) 0.5 Eos # (Auto) 0.5 Baso # (Auto) 0.0 Immature Gran # (Auto) 0.01 H Absolute Nucleated RBC 0.00 Immature Gran % 0 Nucleated RBC % 0 Sodium 144 Potassium 4.1 Chloride 111 H Carbon Dioxide 26.5 Anion Gap 7 BUN 9 Creatinine 0.9 Estim Creat Clear Calc 96.5 eGFR > 60 BUN/Creatinine Ratio 10 L Glucose 92 Calculated Osmolality 285 Calcium 8.3 Corrected Calcium 9.1 Phosphorus 4.1 Magnesium 1.9 Total Bilirubin 0.3 AST 24 ALT 19 Alkaline Phosphatase 112 Total Protein 5.0 L Albumin 3.0 L Globulin 2.0 L Albumin/Globulin Ratio 1.5 Assessment & Plan A&P Narrative hx of syphilis, pos screen locally, no noted risk factors etoh w/d hld by meds htn by meds if syphilis is confirmed at health dept, result is delayed at the health dept for reasons that are not clear to me current rx ok for now, but with neg titer, suggest im pen 2.4mu im weekly x 3 doses. he is improved, so this is likely etoh related overall, valeu of lp is low home once fu rx arranged. Time Spent With Patient Time: Total time spent is greater than 50% in coordination of care (as documented) at patient's floor/unit and/or counseling patient:
[2024-11-08] MEDS: PEN G BENZ (Bicillin LA) 2.4 MMU/4 ML SYRG IM (17:18)
--- NOTE | 2024-11-08 17:54 | ESPR_ITS ---
<Statement entered by Agnes Corona MD - 11/09/24 17:41> I have reviewed the note and agree with the resident's assessment & plan with exceptions as below. I have personally reviewed labs, imaging, home meds/prior records, examined the patient, formulated and discussed management plan with the IM team. Patient examined at bedside today. No acute overnight events. Patient continues to improve, however had experienced some breakthrough agitation and gave additional Librium dose. Pending echo at this time. Continuing CIWA protocol and taper down on Librium dose to 25 mg daily. Patient will need crisis eval on discharge. Anticipate discharge within next 24-48 hrs. Repeat hematology and chemistry in AM. Agnes Corona, PGY-2 Internal Medicine Documentation for date of: 11/08/24 Subjective Subjective Interval history: Patient has been seen and examined at bedside. No acute events overnight. This morning, patient endorsed some nausea and vomiting up a little bit of breakfast. States he feels better now though. Patient denies any tremors, chest pain, shortness of breath, abdominal pain, dizziness, hallucinations. No acute concerns at present. Exam Vital Signs Temp Pulse Resp BP Pulse Ox O2 Del Method O2 Flow Rate 97.2 F 83 17 134/79 H 93 L Room Air 2 11/08/24 15:46 11/08/24 15:46 11/08/24 15:46 11/08/24 15:46 11/08/24 15:46 11/08/24 15:46 11/06/24 16:00 Narrative Exam General: No acute distress, talkative, cooperative. Neurologic: GCS 15. No gross neurological deficit, and patient able to move all 4 extremities. HEENT: Normocephalic, atraumatic, mucous membranes moist. Pupils reactive to light. Cardio: S1+S2. RRR. Grade 3 systolic ejection murmur heard at the right and left sternal borders and mid axillary lines bilaterally. Lungs: Clear to auscultation bilaterally with no wheezing or crackles. Abdomen: Midline surgical scar. Soft, nondistended, nontender, positive bowel sounds. No guarding or rebound tenderness. Extremities: Trace pitting edema lower extremities bilaterally below the knee. 2+ radial and dorsalis pedis pulses bilaterally. Skin: Warm. Dry. No rash or ecchymoses. Objective Labs 11/09/24 04:25 11/09/24 04:25 Labs: Laboratory Results - last 24 hr 11/08/24 05:49 WBC 4.9 RBC 3.56 L Hgb 11.9 L Hct 35.4 L MCV 99 MCH 33.4 MCHC 33.6 RDW Std Deviation 48.1 H Plt Count 142 Neut % (Auto) 47 Lymph % (Auto) 32 [place] % (Auto) 11 Eos % (Auto) 10 Baso % (Auto) 1 Neut # (Auto) 2.3 Lymph # (Auto) 1.6 [place] # (Auto) 0.5 Eos # (Auto) 0.5 Baso # (Auto) 0.0 Immature Gran # (Auto) 0.01 H Absolute Nucleated RBC 0.00 Immature Gran % 0 Nucleated RBC % 0 Sodium 144 Potassium 4.1 Chloride 111 H Carbon Dioxide 26.5 Anion Gap 7 BUN 9 Creatinine 0.9 Estim Creat Clear Calc 96.5 eGFR > 60 BUN/Creatinine Ratio 10 L Glucose 92 Calculated Osmolality 285 Calcium 8.3 Corrected Calcium 9.1 Phosphorus 4.1 Magnesium 1.9 Total Bilirubin 0.3 AST 24 ALT 19 Alkaline Phosphatase 112 Total Protein 5.0 L Albumin 3.0 L Globulin 2.0 L Albumin/Globulin Ratio 1.5 Quality Measures Quality Measures VTE prophylaxis Advance care planning discussed with:: patient Assessment & Plan Assessment Current Active Medications: Generic Name Dose Route Start Last Admin Trade Name Arlyn PRN Reason Stop Dose Admin Acetaminophen 650 mg 11/04/24 00:42 11/07/24 03:53 Acetaminophen 325 Mg Tablet PO 12/04/24 00:41 650 mg Q6H PRN Administration PAIN SCALE 1-3 (mild Aspirin 81 mg 11/08/24 09:00 11/08/24 08:19 Aspirin Ec 81 Mg Tabec PO 12/08/24 08:59 81 mg QDAY ALYSIA Administration Atorvastatin Calcium 80 mg 11/07/24 21:00 11/07/24 22:06 Atorvastatin Calcium 20 Mg Tablet PO 12/07/24 20:59 80 mg HS ALYSIA Administration Chlordiazepoxide HCl 50 mg 11/09/24 09:00 Chlordiazepoxide Hcl 25 Mg Capsule PO 11/14/24 08:59 QDAY ALYSIA Divalproex Sodium 500 mg 11/04/24 21:00 11/07/24 22:11 Divalproex Sod Ec 125 Mg Tabec PO 12/04/24 20:59 500 mg HS ALYSIA Administration Finasteride 5 mg 11/04/24 09:00 11/08/24 08:17 Finasteride 5 Mg Tablet PO 12/04/24 08:59 5 mg QDAY ALYSIA Administration Folic Acid 1 mg 11/04/24 09:00 11/08/24 08:18 Folic Acid 1 Mg Tablet PO 12/04/24 08:59 1 mg QDAY ALYSIA Administration Heparin Sodium (Porcine) 5,000 unit 11/04/24 09:00 11/08/24 08:18 Heparin Sod Inj 5000 Unit/Ml Vial SC 11/18/24 08:59 5,000 unit Q12HR ALYSIA Administration Lisinopril 10 mg 11/04/24 16:15 11/08/24 08:18 Lisinopril 2.5 Mg Tablet PO 12/04/24 16:14 10 mg QDAY ALYSIA Administration Multivitamins 1 tab 11/07/24 09:00 11/08/24 08:18 Multivitamins Tablet PO 12/07/24 08:59 1 tab QDAY ALYSIA Administration Ondansetron HCl 4 mg 11/04/24 00:42 11/04/24 22:29 Ondansetron Inj 2 Mg/Ml Inj 2 Ml IVP 12/04/24 00:41 4 mg Q6H PRN Administration NAUSEA OR VOMITING Protocol Pantoprazole Sodium 40 mg 11/04/24 15:45 11/08/24 08:18 Pantoprazole 40 Mg Tablet PO 12/04/24 15:44 40 mg QDAY ALYSIA Administration Sennosides 1 tab 11/04/24 00:42 Senna Tablet PO 12/04/24 00:41 QDAY PRN constipation Protocol Thiamine HCl 100 mg 11/07/24 09:00 11/08/24 08:18 Thiamine 100 Mg Tablet PO 12/07/24 08:59 100 mg QDAY ALYSIA Administration Ziprasidone 20 mg 11/07/24 09:15 11/08/24 08:18 Ziprasidone 20 Mg Capsule PO 12/07/24 09:14 20 mg BID ALYSIA Administration Plan Assessment: 68-year-old male with a past medical history of bipolar 2, depression, OCD, PTSD, anxiety, alcohol use disorder versus seizure disorder, previous [place] status post stent placement, admitted to the ICU due to SEVERE alcohol withdrawal and was treated with multiple benzodiazepines. Patient has since been downgraded to medical floor for management of ongoing issues. #Acute encephalopathy #Alcohol use disorder #Alcohol withdrawal #Possible psychosis versus auditory hallucinations versus visual hallucinations CIWA 3 morning of 11/07/2024 Patient became slightly agitated later today, was given Librium 25 mg x1. Plan: - CIWA discontinued by ICU as no longer concerned about withdrawal at this stage ? Thiamine 100 mg p.o. daily - Librium Taper plan: 75 mg Q 8 hours x 3, followed by 50 mg every 8 hours x 3, followed by 75 mg every 8 hours x 3 - Continue seizure precautions - director water and waste services consult for crisis eval #Syphilis serology positive, pending confirmation Syphilis serology positive 11/06/2024 Per the patient's PCP, the patient has never been treated for syphilis in the past Patient mentioned that he had syphilis during an episode of severe agitation on 11/05/2024, it is unclear how the patient supposedly knew that he had syphilis since he has never been treated for syphilis in the past according to his PCP Plan: - Penicillin treatment started 11/06/2024, treatment dose for neurosyphilis - ID consulted - Per ID, [facility] lab confirmed rpr is barely pos but fta is pos; may continue current rx, also suggests im pen 2.4mu im weekly x 3 doses #Hx of Hypertension #Aortic murmur #History of NH Per patient he does not see a stabilizer operator Grade 3 systolic ejection murmur on physical Plan: - Restarted p.o. home lisinopril 11/07/2024 - Pending echo read ?Restarted aspirin 81 mg daily #Transaminitis (resolved) #Hyperammonemia #Hypoalbuminemia #Cirrhosis Transaminitis during hospital stay likely due to alcohol intoxication at time of admission, resolved Ammonia slightly elevated at 34, also likely alcohol related Hypoalbuminemia most likely secondary to cirrhosis and history of alcohol use Plan: - Resume home atorvastatin 11/07/2024 - Social service consult for crisis eval regarding alcohol abuse - Consider lactulose if alcoholic withdrawal treatment is insufficient for resolution of patient's agitation if in the presence of supporting evidence for the clinical diagnosis of hepatic encephalopathy #Hx of BPH Patient on finasteride 5 mg p.o. daily ED provider ordered Matthews Plan: ?DC Matthews and do bladder training ?Restarted home medication #Hx of Bipolar disorder 2 #Hx of Depression #History of OCD #History of PTSD #History of anxiety - Patient sees a psychiatrist outpatient for these conditions - Patient mentions that he takes lithium, Abilify, Seroquel, and prozac Plan: - Continue Geodon 20 mg p.o. twice daily - Continue valproic acid - DC home Abilify, buspirone - Follow-up outpatient psych Health Maintenance: Diet: Regular GI prophylaxis: protonix 40 daily DVT prophylaxis: Heparin subcut 5000 units twice daily Code: DNR Pending physical therapy. Patient will need social work coordinator evaluation. Patient plan of care was discussed with the attending physician, Dr. Espinal and my senior resident, Dr. Cj Argueta MD PGY-1 Attending Provider Attestation/Addendum IAmira DO, attest that I was physically present for the porter portions of the service and evaluated the patient with the resident and I reviewed and discussed the case with the resident and agree with the resident's findings and plans of care as documented above Patient seen and eval this a.m. He complains that he is drowsy. However, patient is calm. CIWA score is 0. He denies any nausea, vomiting, headache, tremors, visual, tactile, auditory hallucinations otherwise. Currently tapering Librium dose. Will switch to Librium 50 mg daily tomorrow. Anticipate discharge in the next 24 to 48 hours. Patient will need a mental health evaluation as patient had previously been on various psychiatric medications. Suspect noncompliance with psychiatric medications. Currently doing well on Zyprexa down. Will continue with current management otherwise.
--- NOTE | 2024-11-08 19:48 | PC.NURSE ---
called Dr. Thompson regarding patient's BP of 159/112, patient is not c/o pain, headache, dizziness, is asymptomatic, current CIWA score is 0. Patient is also requesting for something to help with his heart burn. Per will look into patient's chart, pending orders.
[2024-11-08] MEDS: DIVALPROEX SOD EC 125 MG TABEC 500 MG PO (20:06)
[2024-11-08] MEDS: SUCRALFATE 1 GM TABLET PO (20:06)
[2024-11-08] MEDS: ATORVASTATIN CALCIUM 20 MG TABLET 80 MG PO (20:07)
[2024-11-09] VITALS: BP 171/90; PULSE 83; RESP 17; TEMP 37.1; O2SAT 97
[2024-11-09 04:00] VITALS: BP 115/74; PULSE 84; RESP 20; TEMP 36.8; O2SAT 95
[2024-11-09 05:26] LABS: Basophils # (Auto) 0.0 Thou/mm3 (0.0-0.2); Basophils % (Auto) 1 % (0-2.5); Eosinophils # (Auto) 0.6 Thou/mm3 (0.0-0.5); Eosinophils % (Auto) 10 % (0-10); Hematocrit 42.0 % (41.0-53.0); Hemoglobin 13.8 g/dL (13.5-16.0); Immature Granulocytes Auto 0.02 Thou/mm3 (0.00-0.00); Lymphocytes # (Auto) 1.4 Thou/mm3 (1.0-4.8); Lymphocytes % (Auto) 26 % (10-50); Mean Corpuscular HGB Conc 32.9 g/dl (31.0-37.0); Mean Corpuscular Hemoglobin 32.8 pg (25.0-35.0); Mean Corpuscular Volume 100 fL (80-100); Monocytes # (Auto) 0.4 Thou/mm3 (0.0-0.8); Monocytes % (Auto) 8 % (0-12); Neutrophils # (Auto) 3.1 Thou/mm3 (1.8-7.7); Neutrophils % (Auto) 56 % (37-80); Nucleated Red Blood Cell # 0.00 Thou/mm3 (0.00-0.00); Nucleated Red Blood Cell % 0 /100 WBC (0); Platelet Count 155 Thou/mm3 (140-440); RDW Standard Deviation 48.7 fL (35.1-43.9); Red Blood Count 4.21 Miln/mm3 (4.50-5.90); White Blood Count 5.5 Thou/mm3 (3.8-10.6)
[2024-11-09 06:00] LABS: Alanine Aminotransferase 19 U/L (10-49); Albumin, Serum 3.7 gm/dL (3.4-4.8); Albumin/Globulin Ratio 1.7 (1.2-2.2); Alkaline Phosphatase 129 U/L (46-116); Anion Gap 12 (7-16); Aspartate Amino Transferase 27 U/L (0-34); BUN/Creatinine Ratio 8 Ratio (12-20); Bilirubin,Total 0.3 mg/dL (0.3-1.2); Blood Urea Nitrogen 7 mg/dL (9-23); Calcium 8.8 mg/dL (8.3-10.6); Calcium (Corrected) 9.0 mg/dL (8.5-10.1); Carbon Dioxide 24.9 mMol/L (20.0-31.0); Chloride 105 mMol/L (98-107); Creatinine (Component) 0.9 mg/dL (0.6-1.3); Estimated Creatinine Clearance 96.5 mL/min (>60); Globulin 2.2 gm/dL (2.3-3.5); Glucose 154 mg/dL (74-106); Magnesium 1.3 mg/dL (1.6-2.6); Osmolality,Calculated 284 (275-295); Phosphorous 3.3 mg/dL (2.4-5.1); Potassium 4.2 mMol/L (3.4-5.1); Sodium 142 mMol/L (136-145); Total Protein 5.9 gm/dL (5.7-8.2); eGFR > 60 See Note
--- NOTE | 2024-11-09 07:54 | PD.RESPRO ---
Documentation for date of: 11/09/24 Exam Vital Signs Temp Pulse Resp BP Pulse Ox O2 Del Method O2 Flow Rate 98.2 F 84 20 115/74 95 Room Air 2 11/09/24 04:00 11/09/24 04:00 11/09/24 04:00 11/09/24 04:00 11/09/24 04:00 11/09/24 04:00 11/06/24 16:00 Objective Labs 11/09/24 04:25 11/09/24 04:25 Labs: Laboratory Results - last 24 hr 11/09/24 04:25 WBC 5.5 RBC 4.21 L Hgb 13.8 Hct 42.0 MCV 100 MCH 32.8 MCHC 32.9 RDW Std Deviation 48.7 H Plt Count 155 Neut % (Auto) 56 Lymph % (Auto) 26 [place] % (Auto) 8 Eos % (Auto) 10 Baso % (Auto) 1 Neut # (Auto) 3.1 Lymph # (Auto) 1.4 [place] # (Auto) 0.4 Eos # (Auto) 0.6 H Baso # (Auto) 0.0 Immature Gran # (Auto) 0.02 H Absolute Nucleated RBC 0.00 Immature Gran % 0 Nucleated RBC % 0 Sodium 142 Potassium 4.2 Chloride 105 Carbon Dioxide 24.9 Anion Gap 12 BUN 7 L Creatinine 0.9 Estim Creat Clear Calc 96.5 eGFR > 60 BUN/Creatinine Ratio 8 L Glucose 154 H D Calculated Osmolality 284 Calcium 8.8 Corrected Calcium 9.0 Phosphorus 3.3 Magnesium 1.3 L Total Bilirubin 0.3 AST 27 ALT 19 Alkaline Phosphatase 129 H Total Protein 5.9 Albumin 3.7 D Globulin 2.2 L Albumin/Globulin Ratio 1.7 Quality Measures Quality Measures VTE prophylaxis Assessment & Plan Assessment Current Active Medications: Generic Name Dose Route Start Last Admin Trade Name Freq PRN Reason Stop Dose Admin Acetaminophen 650 mg 11/04/24 00:42 11/07/24 03:53 Acetaminophen 325 Mg Tablet PO 12/04/24 00:41 650 mg Q6H PRN Administration PAIN SCALE 1-3 (mild Aspirin 81 mg 11/08/24 09:00 11/08/24 08:19 Aspirin Ec 81 Mg Tabec PO 12/08/24 08:59 81 mg QDAY ALYSIA Administration Atorvastatin Calcium 80 mg 11/07/24 21:00 08/01/25 20:07 Atorvastatin Calcium 20 Mg Tablet PO 12/07/24 20:59 80 mg HS ALYSIA Administration Chlordiazepoxide HCl 50 mg 11/09/24 09:00 Chlordiazepoxide Hcl 25 Mg Capsule PO 11/14/24 08:59 QDAY ALYSIA Divalproex Sodium 500 mg 11/04/24 21:00 11/08/24 20:06 Divalproex Sod Ec 125 Mg Tabec PO 12/04/24 20:59 500 mg HS ALYSIA Administration Finasteride 5 mg 11/04/24 09:00 11/08/24 08:17 Finasteride 5 Mg Tablet PO 12/04/24 08:59 5 mg QDAY ALYSIA Administration Folic Acid 1 mg 11/04/24 09:00 11/08/24 08:18 Folic Acid 1 Mg Tablet PO 12/04/24 08:59 1 mg QDAY ALYSIA Administration Heparin Sodium (Porcine) 5,000 unit 11/04/24 09:00 11/08/24 20:07 Heparin Sod Inj 5000 Unit/Ml Vial SC 11/18/24 08:59 5,000 unit Q12HR ALYSIA Administration Magnesium Sulfate 4 gm in 50 mls @ 12.5 mls/hr 11/09/24 07:52 Magnesium Sulfate Ivpb IV 11/09/24 11:51 X1 ONE Lisinopril 10 mg 11/04/24 16:15 11/08/24 08:18 Lisinopril 2.5 Mg Tablet PO 12/04/24 16:14 10 mg QDAY ALYSIA Administration Multivitamins 1 tab 11/07/24 09:00 11/08/24 08:18 Multivitamins Tablet PO 12/07/24 08:59 1 tab QDAY ALYSIA Administration Ondansetron HCl 4 mg 11/04/24 00:42 11/04/24 22:29 Ondansetron Inj 2 Mg/Ml Inj 2 Ml IVP 12/04/24 00:41 4 mg Q6H PRN Administration NAUSEA OR VOMITING Protocol Pantoprazole Sodium 40 mg 11/04/24 15:45 11/08/24 08:18 Pantoprazole 40 Mg Tablet PO 12/04/24 15:44 40 mg QDAY ALYSIA Administration Sennosides 1 tab 11/04/24 00:42 Senna Tablet PO 12/04/24 00:41 QDAY PRN constipation Protocol Thiamine HCl 100 mg 11/07/24 09:00 11/08/24 08:18 Thiamine 100 Mg Tablet PO 12/07/24 08:59 100 mg QDAY ALYSIA Administration Ziprasidone 20 mg 11/07/24 09:15 11/08/24 20:06 Ziprasidone 20 Mg Capsule PO 12/07/24 09:14 20 mg BID ALYSIA Administration
[2024-11-09 08:00] VITALS: BP 124/82; PULSE 79; RESP 18; TEMP 36.1; O2SAT 95
[2024-11-09 08:24] VITALS: BP 124/82; PULSE 79
[2024-11-09] MEDS: FINASTERIDE 5 MG TABLET PO (08:24)
[2024-11-09] MEDS: FOLIC ACID 1 MG TABLET PO (08:24)
[2024-11-09] MEDS: MULTIVITAMINS TABLET 1 TAB PO (08:24)
[2024-11-09] MEDS: PANTOPRAZOLE 40 MG TABLET PO (08:24)
[2024-11-09] MEDS: ASPIRIN EC 81 MG TABEC PO (08:25)
[2024-11-09] MEDS: ZIPRASIDONE 20 MG CAPSULE PO (08:25)
[2024-11-09] MEDS: THIAMINE 100 MG TABLET PO (08:25)
[2024-11-09] MEDS: HEPARIN SOD INJ 5000 UNIT/ML VIAL SC (08:26)
[2024-11-09] MEDS: Magnesium Sulfate 4 GM Ivpb 4 GM/50 ML BAG IV (08:26)
--- NOTE | 2024-11-09 08:55 | PC.SS ---
SS spoke to Dr. Espinal who stated pt is medically cleared, pending Crisis. SS updated, ED CC Michelle she will see the pt today.
[2024-11-09 12:00] VITALS: BP 124/82; BP 129/84; PULSE 79; RESP 18; TEMP 36.1; O2SAT 93
--- NOTE | 2024-11-09 13:08 | ESDS_ITS ---
<Statement entered by Amira Espinal DO - 11/10/24 14:10> I, Amira Espinal DO, attest that I was physically present for the porter portions of the service and evaluated the patient with the resident and I reviewed and discussed the case with the resident and agree with the resident's findings and plans of care as documented above Planned Discharge Date 11/09/24 DS: Providers Provider Date of admission: 11/04/24 00:39 Primary care physician: Physician No Primary/Family Admitting Provider: Washington Masters MD Attending Provider on Admission: Amira Espinal DO Consults: 11/04/24 16:11 Referral Wound Care Routine Comment: 11/05/24 13:10 Consult to Shrink Pit Operator Routine Comment: Consulting Provider: Faustino Ortega I 11/06/24 10:01 Consult to Infectious Diseases Urgent Comment: Syphilis Rapid Positive Consulting Provider: Salvatore Smith Attending Provider on DC: Amira Espinal DO Discharging Provider: Amira Espinal DO DS: Diagnosis Problem List Completed Was Problem List Reviewed/Reconciled?: Yes Hospital Course Hospital Course Hospital course: Patient is a 68 years old male with past medical history of hypertension, BPH, alcohol abuse who presented to the ED at [facility]. Admitted for acute encephalopathy due to alcohol withdrawal. In the ED, patient was found to be hypotensive with blood pressure down up to 65/39, received aggressive IV hydration, 4 L total. Started on CIWA protocol, thiamine and folate supplementation. Patient was transferred to the ICU for persistent agitation despite being given diazepam and Librium. CIWA protocol was eventually held, patient started on IM Geodon as needed every 6 hours we will keep max dose 40 mg daily. Patient tested positive for syphilis, confirmatory test from [facility] came back positive, rpr & fta is positive. Patient was downgraded to floors and had CIWA protocol discontinued. Patient was started on penicillin dosing for neurosyphilis, infectious disease on board. Attempt was made to reach out to patient's PCP however [place]CP out of [place] currently [place] vacation, patient was scheduled for psychiatrist appointment on 11/07 does have diagnosed history of bipolar disorder. The day of admission, the patient states he feels better now though. Patient denies any tremors, chest pain, shortness of breath, abdominal pain, dizziness, hallucinations. No acute concerns at present. Imaging Findings: CXR showed Normal heart size. The lungs are clear. The osseous structures are intact CT head showed No significant ventricular enlargement. Intra-axial or extra- axial hemorrhage density is not seen. No mass effect or midline shift Basal cisterns are not remarkable. Fourth ventricle is midline. Cranial vault intact. Discharge Instructions Follow-up with PCP within 1 week You will have to go to the [facility] in [place] as you will need an appointment to be made for November 15. At this appointment you will receive your intramuscular injection of penicillin G for your syphilis you tested positive for inpatient Follow-up with your psychiatrist within 1 to 2 weeks of discharge Avoid alcohol and other substances at all cost Return to ED if your symptoms worsen or return Admission Diagnosis #Acute encephalopathy #Acute alcohol intoxication #Alcohol use disorder #ASHLEY #Hypotension, hypovolemia #Hyperglycemia #Hx of Hypertension #Hx of BPH #Hx of Bipolar disorder #Hx of Depression Patient plan of care was discussed with the attending physician, Dr. Kylie Argueta MD PGY-1 Time Spent with Patient Time attestation: Total time spent providing and/or coordinating discharge services: Time spent: Greater than 30 minutes Exam Vital Signs Temp Pulse Resp BP Pulse Ox O2 Del Method O2 Flow Rate 97 F 79 18 124/82 93 L Room Air 2 11/09/24 12:11/09/24 12:11/09/24 12:11/09/24 12:11/09/24 12:11/09/24 12:11/06/24 16:00 Narrative Exam General: No acute distress, talkative, cooperative. Neurologic: GCS 15. No gross neurological deficit, and patient able to move all 4 extremities. HEENT: Normocephalic, atraumatic, mucous membranes moist. Pupils reactive to light. Cardio: S1+S2. RRR. Grade 3 systolic ejection murmur heard at the right and left sternal borders and mid axillary lines bilaterally. Lungs: Clear to auscultation bilaterally with no wheezing or crackles. Abdomen: Midline surgical scar. Soft, nondistended, nontender, positive bowel sounds. No guarding or rebound tenderness. Extremities: Trace pitting edema lower extremities bilaterally below the knee. 2+ radial and dorsalis pedis pulses bilaterally. Skin: Warm. Dry. No rash or ecchymoses. Discharge Plan Plan Patient Disposition: HOME (Self Care) Patient condition on transfer: Stable Care Plan Goals: Discharge instructions: Follow-up with PCP within 1 week You will have to go to the [facility] in [place] as you will need an appointment to be made for November 15. At this appointment you will receive your intramuscular injection of penicillin G for your syphilis you tested positive for inpatient. You will need two appointments, each of those being by 1 week as you will need 2 more injections. Follow-up with your psychiatrist within 1 to 2 weeks of discharge Avoid alcohol and other substances at all cost I am sending you some new psych medicines, and holding some of your previous ones. Take as prescribed and discuss with your PCP and psychiatrist. Return to ED if your symptoms worsen or return Prescriptions/Referrals Prescriptions/Med Rec: New ferrous sulfate 325 mg (65 mg iron) tablet 325 mg PO Q OTHER DAY 30 Days Qty: 15 0RF Rx Instructions: Take one tablet by mouth every other day ziprasidone HCl 20 mg Capsule 20 mg PO BID 30 Days Qty: 60 0RF Rx Instructions: Take one tablet by mouth twice a day finasteride 5 mg Tablet 5 mg PO QDAY 30 Days Qty: 30 0RF Rx Instructions: Take one tablet by mouth every day Continued atorvastatin 80 mg tablet 80 mg PO HS Patient Comments: TAKE 1 TABLET BY MOUTH DAILY AT BEDTIME FOR 7 DOSES aspirin 81 mg tablet,delayed release (DR/EC) 81 mg PO QDAY Patient Comments: TAKE 1 TABLET (81 MG TOTAL) BY MOUTH 1 (ONE) TIME EACH DAY FOR 26 DOSES. lisinopril 10 mg tablet 10 mg PO QDAY Patient Comments: TAKE 1 TABLET BY MOUTH 1 TIME EACH DAY. divalproex 500 mg tablet extended release 24 hr 500 mg PO HS Patient Comments: TAKE 1 TABLET BY MOUTH EVERYDAY AT BEDTIME Held buspirone 7.5 mg Tablet 7.5 mg PO QDAY Hold Instructions: Resume with PCP/psych aripiprazole [Abilify] 5 mg Tablet 5 mg PO HS Hold Instructions: resume with psyc/pcp Discontinued ferrous sulfate 325 mg (65 mg iron) tablet 325 mg PO QDAY Patient Comments: TAKE 1 TABLET BY MOUTH EVERY DAY Referrals: [facility] [Outside] Lara Ma MD [Resident] - No Primary/Family,Physician [Primary Care Provider] - Patient/Caregiver Discharge Instructions Discharge Activity: activity as tolerated Education Materials: Alcoholism Resources, Alcohol Addiction, Alcohol Withdrawal: What to Expect, Syphilis Print Language: Mosotho Stand Alone Forms: Pretty Award Info., Patient Portal Info Letter Discharge Order Discharge Orders: Discharge (Routine); Ordered 11/09/24 Ordered By: Agnes Corona Quality Discharge Quality Measures VTE prophylaxis
--- NOTE | 2024-11-09 13:08 | PC.SS ---
Heater Room Helper (SW) Aubree informed by Dr. Espinal that patient was medically clear for a crisis evaluation. DIRECTOR GLOBAL INTELLIGENCE, Aubree, met with patient [id number] to do initial assessment due to needing a crisis evaluation. CORPORATE DEVELOPMENT MANAGER introduced herself, role in the agency, reason for visit, and discussed limits of confidentiality. Patient appeared alert and oriented to self, time, place, and situation. Patient appears stated age. Patient made good eye contact. Patient?s attitude appeared pleasant and cooperative. Patient?s behavior appeared ordinary. Patient?s mood appears ordinary. No signs of delusions or hallucinations.
--- NOTE | 2024-11-09 13:22 | PC.SS ---
Assistant Front Desk Manager (RONAL) Aubree informed by Dr. Espinal that patient was medically clear for a crisis evaluation. CYBER DEFENSE ANALYST, Aubree, met with patient [id number] to do initial assessment due to needing a crisis evaluation. LINE DEPARTMENT SUPERVISOR introduced herself, role in the agency, reason for visit, and discussed limits of confidentiality. Patient appeared alert and oriented to self, time, place, and situation. Patient appears older than stated age. Patient made good eye contact. Patient?s attitude appears pleasant and cooperative. Patient?s behavior appeared ordinary. Patient?s mood appears ordinary. No signs of delusions, paranoia, or hallucinations. This is 68-year-old, , male who presented to the ED via ambulance from home. Patient reported that his friend, Sanchez (phone: [phone]) called for coming in and out of consciousness after disclosing that he had been binge drinking vodka while Sanchez was at the [facility]. During patient's admission, on 11/05/2024, patient was upgraded to the ICU to manage his alcohol withdrawal symptoms. Patient reported that he is diagnosed with bipolar type 2, depressive, PTSD, and OCD. Patient follows-up with psychiatrist, Dr. Montes in [place]. Patient is supposed to be taking abilify, depakote, hydroxyzine, and keplida. Patient reported that prior to admission, his son was staying with him at his home in [place]; however, his son is a significant stressor due to suffering from mental health illnesses, experiencing homelessness and being homosexual. Patient reported that during that time, he was not taking his medications as prescribed and was using alcohol to cope with his stressors. Patient reported that he was experiencing a manic epsiode as well. Sanchez confirmed information by describing patient's manic symptoms: lack of sleep, bursts of energy, irritable, and easily distractible. Patient reported [facility] ask [facility] with helping him manage his medications. Patient denied any current HI, SI, A/h, V/h. Patient reported a prior suicide attempt by overdosing on medications, which occurred 20 years ago. CYBER DEFENSE ANALYST staffed case with bleaching supervisor, Yesica Calhoun, patient does not meet criteria for 5150 hold. Safety plan: [facility] will [facility] ([address] [place] [address]) and follow up with Dr. Montes on 11/26/24 at 1430. CYBER DEFENSE ANALYST provided information to Warm Line, Crisis Line and Community Resources.
== END 2024-11-09 16:15 | disposition home or self-care (01) | DRG 896 ==
LOC: SERX 11-04 00:17 → SERHOLD 11-04 01:12 → S2NX 11-04 09:28 → S3NX 11-04 22:14 → S2SX 11-05 14:40 → S3NX 11-07 15:15
PROVIDERS: Student in an Organized Health Care Education/Training Program; Admitting Provider Student in an Organized Health Care Education/Training Program; Emergency Provider Emergency Medicine; Visit Provider Internal Medicine
DX: F10.229 Alcohol dependence with intoxication, unspecified (principal); G93.41 Metabolic encephalopathy; N17.9 Acute kidney failure, unspecified; F31.81 Bipolar II disorder; F23 Brief psychotic disorder; F10.231 Alcohol dependence with withdrawal delirium; I10 Essential (primary) hypertension; N40.0 Benign prostatic hyperplasia without lower urinary tract symptoms; F12.90 Cannabis use, unspecified, uncomplicated; I95.9 Hypotension, unspecified; R00.1 Bradycardia, unspecified; Y90.7 Blood alcohol level of 200-239 mg/100 ml; E86.0 Dehydration; Z66 Do not resuscitate; D50.9 Iron deficiency anemia, unspecified; D69.6 Thrombocytopenia, unspecified; E11.65 Type 2 diabetes mellitus with hyperglycemia; E78.5 Hyperlipidemia, unspecified; E83.42 Hypomagnesemia; E86.1 Hypovolemia; E87.5 Hyperkalemia; E88.09 Other disorders of plasma-protein metabolism, not elsewhere classified; F17.200 Nicotine dependence, unspecified, uncomplicated; F42.9 Obsessive-compulsive disorder, unspecified; F41.9 Anxiety disorder, unspecified; F43.10 Post-traumatic stress disorder, unspecified; I25.2 Old myocardial infarction; K76.82 Hepatic encephalopathy; Z78.1 Physical restraint status; Z79.82 Long term (current) use of aspirin; Z79.899 Other long term (current) drug therapy
CPT/HCPCS: 36415; 70450; 71045; 80053; 80061; 80307; 80320; 81001; 82140; 82550; 82607; 82728; 82746; 83036; 83540; 83550; 83605; 83735; 84100; 84443; 84484; 85025; 85046; 85610; 85730; 86703; 86705; 86706; 86780; 86803; 87040; 87340; 93005; 93225; 93306; 96361; 96374; 99283; A4216; A4314; J0561; J1644; J1815; J2405; J2540; J2560; J3360; J3411; J3420; J3475; J3480; J3486; J3490; J7030; J7042; J7999; A9270; G0480